=== PATIENT | male | born 1935 | race Two or more races ===

== ENCOUNTER 2016-07-12 16:34 | Inpatient (IN) | payer MEDICARE ==
[~2016-07-12] VITALS: Ht 170.2 cm; Wt 95.3 kg
[~2016-07-12 16:34] MED LIST: ALPR0.5T7 PO; ASPI81CH43 PO; FLUT100M7 IN; HYDR500C; IPRAAER5; LISI10TA6; MECL12.554; MECL25CH PO; OMEG300C7 OR; OMEP20CA5 PO; OMEP20TA44; PAR20T; TAM04C PO
[2016-07-12 17:16] LABS: Basophils # (auto) 0 uL; Basophils % (auto) 0.7 % (0.0-2.0); DEFINITIVE VIEW TRANSMISSION; Eosinophils # (auto) 0.4 uL; Eosinophils % (auto) 6.5 % (0.0-7.0); Hematocrit 48.9 % (41.0-53.0); Hemoglobin 15.9 g/dL (13.5-17.5); Lymphocytes # (auto) 0.7 uL; Lymphocytes % (auto) 12.3 % (10.0-50.0); Mean Corpuscular Hemoglobin 34.7 pg (28.0-32.0); Mean Corpuscular Hgb Conc. 32.6 g/dL (32.0-36.0); Mean Corpuscular Volume 106.3 fL (80.0-100.0); Mean Platelet Volume 7.1 fL (7.4-10.4); Monocytes # (auto) 0.4 uL; Monocytes % (auto) 6.3 % (0.0-12.0); Neutrophils # (auto) 4.3 uL; Neutrophils % (auto) 74.2 % (37.0-80.0); Platelet Count (auto) 340 10^3/uL (140-450); Red Cell Distribution Width 16.1 % (11.6-16.0); White Blood Cell 5.8 10^3/uL (4.4-10.8)
[2016-07-12 17:30] LABS: BUN/Creatinine Ratio 19.3; Bilirubin, Total 0.5 mg/dL (0.2-1.0); Calcium 8.9 mg/dL (8.5-10.1); Potassium 5.3 mmol/L (3.5-5.1); Total Protein 7.7 g/dL (6.4-8.2)
[2016-07-12] MEDS ORDERED: IPRATROPIUM BROM 0.5 MG/2.5ML INH SOL NEB ONE (20:00)
[2016-07-12] MEDS ORDERED: ALBUTEROL SULF 2.5 MG/0.5ML(0.5%) NEB SOLN NEB ONE (20:00)
[2016-07-12] MEDS ORDERED: methylPREDNISolone SOD SUCC 125 MG/2 ML VL IV ONE (20:00)
[2016-07-12 20:25] LABS: INR 1.04 (0.9-1.15)
[2016-07-12 20:30] LABS: B-Type Natriuretic Peptide 9.12 pg/mL (0-100)
[2016-07-12 21:01] LABS: Urine RBC None Seen /hpf (0 - 3)
[2016-07-12] MEDS ORDERED: MECL12.554 PO (21:35)
[2016-07-12 21:36] LABS: Urine Bilirubin Negative (Negative); Urine Blood Negative /uL (Negative); Urine Color Yellow (Yellow); Urine Glucose Normal (Normal); Urine Ketone Negative (Negative); Urine Nitrite Negative (Negative); Urine Squamous Epithelial Cell FEW /hpf (<5); Urine Urobilinogen Normal (Negative); Urine pH 6.5 (5.0-8.0)
[2016-07-12] MEDS ORDERED: LISI-646 PO (21:37)
[2016-07-12] MEDS ORDERED: HYDR500C PO (21:38)
[2016-07-12] MEDS ORDERED: MORPHINE SULF INJ 2 MG/ML SYRINGE 1ML IV PRN (22:45)
[2016-07-12] MEDS ORDERED: NITROGLYCERIN 0.4 MG SL TAB SL PRN (22:45)
[2016-07-12] MEDS ORDERED: DEXTROSE (50%) 50ML SYRG IV PRN (22:45)
[2016-07-12] MEDS ORDERED: cefTRIAXone 1GM/50ML D5W 50 ML IV ONE (22:45)
[2016-07-12] MEDS ORDERED: LACTULOSE 20Gm/30ML SOLN PO PRN (22:45)
[2016-07-12] MEDS ORDERED: AZITHROMYCIN 500MG/D5W 250ML 250 ML IV ONE (22:45)
[2016-07-12] MEDS: SODIUM CHLORIDE 0.9% 1,000 ML IV SCH (23:12)
[2016-07-12 23:20] VITALS: BP 155/78
[2016-07-12 23:30] VITALS: BP 155/75
[2016-07-12] MEDS ORDERED: CALCIUM GLUC 4.65 MEQ/10ML 4.65 MEQ in SODIUM CHL 0.9% 50 ML IV ONE (23:45)
[2016-07-12] MEDS ORDERED: SODIUM BICARBONATE 8.4% INJ 50ML SYRINGE IV ONE (23:45)
[2016-07-12] MEDS ORDERED: InsuLIN REG 1unit/0.01ml Soln (100units/ml) IV ONE (23:45)
[2016-07-12] MEDS ORDERED: DEXTROSE (50%) 50ML SYRG IV ONE (23:45)
[2016-07-13] MEDS ORDERED: CALCIUM GLUC 4.65 MEQ/10ML IV ONE (00:07)
[2016-07-13] MEDS: InsuLIN REG 1unit/0.01ml Soln (100units/ml) SC SCH ×3 (00:55→11:46)
[2016-07-13] MEDS: ACCU-CHEK COMFORT CURVE STRIP VI SCH ×3 (00:55→11:46)
[2016-07-13 05:09] VITALS: BP 117/70
[2016-07-13] MEDS ORDERED: IBUP600T27 PO (05:25)
[2016-07-13] MEDS ORDERED: ALBU1AER4 IN (05:25)
[2016-07-13] MEDS ORDERED: MECL-87 PO (05:25)
[2016-07-13] MEDS ORDERED: ARTISOL13 EACHEYE (05:25)
[2016-07-13] MEDS ORDERED: ATOR20TA PO (05:25)
[2016-07-13 06:09] LABS: Basophils # (auto) 0 uL; Basophils % (auto) 0.1 % (0.0-2.0); DEFINITIVE VIEW TRANSMISSION; Eosinophils # (auto) 0 uL; Eosinophils % (auto) 0.2 % (0.0-7.0); Hematocrit 47.2 % (41.0-53.0); Hemoglobin 15.5 g/dL (13.5-17.5); Lymphocytes # (auto) 0.3 uL; Mean Corpuscular Hemoglobin 34.4 pg (28.0-32.0); Mean Corpuscular Hgb Conc. 32.8 g/dL (32.0-36.0); Mean Platelet Volume 7.3 fL (7.4-10.4); Monocytes # (auto) 0.1 uL; Monocytes % (auto) 1.3 % (0.0-12.0); Neutrophils # (auto) 3.9 uL; Neutrophils % (auto) 90.4 % (37.0-80.0); Platelet Count (auto) 321 10^3/uL (140-450); Red Cell Distribution Width 15.6 % (11.6-16.0); White Blood Cell 4.3 10^3/uL (4.4-10.8)
[2016-07-13 06:36] LABS: Albumin 3.8 g/dL (3.4-5.0); BUN/Creatinine Ratio 20.8; Bilirubin, Total 0.5 mg/dL (0.2-1.0); Calcium 8.8 mg/dL (8.5-10.1); Potassium 4.3 mmol/L (3.5-5.1); Total Protein 7.4 g/dL (6.4-8.2)
[2016-07-13 09:00] VITALS: BP 117/69
[2016-07-13] MEDS: methylPREDNISolone SOD SUCC 125 MG/2 ML VL IV SCH ×3 (09:00→23:01)
[2016-07-13] MEDS: cefTRIAXone 1GM/50ML D5W 50 ML IV SCH (09:00)
[2016-07-13] MEDS: PARoxetine 20 MG TAB PO SCH (09:42)
[2016-07-13] MEDS: PANTOPRAZOLE SODIUM 40 MG/10 ML VIAL IV SCH (09:42)
[2016-07-13] MEDS: AZITHROMYCIN 500MG/D5W 250ML 250 ML IV SCH (09:43)
[2016-07-13] MEDS: ENOXAPARIN SOD 40 MG/0.4 ML SYRINGE SC SCH (09:43)
[2016-07-13] MEDS: HYDROXYUREA 500 MG CAP PO SCH (09:43)
[2016-07-13] MEDS: ASPirin 81 mg TAB PO SCH (09:43)
[2016-07-13] MEDS: ALPRAZolam 0.5 MG TAB PO SCH ×2 (09:44→23:01)
[2016-07-13] MEDS: LISINOPRIL 20 MG TAB PO SCH (09:44)
[2016-07-13] MEDS ORDERED: ENOXAPARIN SOD 30 MG/0.3 ML SYRINGE SC SCH (10:00)
[2016-07-13] MEDS: SODIUM CHLORIDE 0.9% 1,000 ML IV SCH ×2 (11:10→23:40)
[2016-07-13] MEDS: IPRATROPIUM BROM 0.5 MG/2.5ML INH SOL NEB PRN (12:00)
[2016-07-13] MEDS: ALBUTEROL SULF 2.5 MG/0.5ML(0.5%) NEB SOLN NEB PRN (12:00)
[2016-07-13 13:00] VITALS: BP 115/79
[2016-07-13 17:00] VITALS: BP 108/66
[2016-07-13] MEDS: TAMSULOSIN HYDROCHLORIDE 0.4 MG CAP PO SCH (17:55)
[2016-07-13] MEDS ORDERED: TEMAZEPAM 15 MG CAP PO ONE (22:00)
[2016-07-13 22:10] VITALS: BP 117/68
[2016-07-13 23:16] VITALS: BP 117/68
[2016-07-14 05:00] VITALS: BP 117/61
[2016-07-14] MEDS: ALBUTEROL SULF 2.5 MG/0.5ML(0.5%) NEB SOLN NEB PRN ×3 (07:15→22:25)
[2016-07-14] MEDS: IPRATROPIUM BROM 0.5 MG/2.5ML INH SOL NEB PRN ×3 (07:15→22:25)
[2016-07-14 08:00] VITALS: BP 128/80
[2016-07-14] MEDS: cefTRIAXone 1GM/50ML D5W 50 ML IV SCH (09:10)
[2016-07-14] MEDS: PANTOPRAZOLE SODIUM 40 MG/10 ML VIAL IV SCH (09:14)
[2016-07-14] MEDS: methylPREDNISolone SOD SUCC 125 MG/2 ML VL IV SCH (09:18)
[2016-07-14] MEDS: ALPRAZolam 0.5 MG TAB PO SCH ×2 (09:20→22:14)
[2016-07-14] MEDS: HYDROXYUREA 500 MG CAP PO SCH (09:20)
[2016-07-14] MEDS: ASPirin 81 mg TAB PO SCH (09:20)
[2016-07-14] MEDS: ENOXAPARIN SOD 40 MG/0.4 ML SYRINGE SC SCH (09:21)
[2016-07-14] MEDS: PARoxetine 20 MG TAB PO SCH (09:21)
[2016-07-14] MEDS: LISINOPRIL 20 MG TAB PO SCH (09:21)
[2016-07-14] MEDS: AZITHROMYCIN 500MG/D5W 250ML 250 ML IV SCH (10:00)
[2016-07-14] MEDS: SODIUM CHLORIDE 0.9% 1,000 ML IV SCH (10:38)
[2016-07-14 12:30] VITALS: BP 111/71
[2016-07-14] MEDS ORDERED: FUROSEMIDE 40 MG/4 ML VIAL IV ONE (14:30)
[2016-07-14 17:00] VITALS: BP 107/68
[2016-07-14] MEDS: TAMSULOSIN HYDROCHLORIDE 0.4 MG CAP PO SCH (18:09)
[2016-07-14 21:19] VITALS: BP 100/55
[2016-07-14] MEDS: methylPREDNISolone SOD SUCC 40 MG/ML VL IV SCH (22:13)
[2016-07-14] MEDS ORDERED: ZOLPIDEM TARTRATE 5 MG TAB PO PRN (22:15)
[2016-07-15 05:00] VITALS: BP 124/70
[2016-07-15] MEDS: IPRATROPIUM BROM 0.5 MG/2.5ML INH SOL NEB PRN ×3 (06:15→13:49)
[2016-07-15] MEDS: ALBUTEROL SULF 2.5 MG/0.5ML(0.5%) NEB SOLN NEB PRN ×3 (06:15→13:49)
[2016-07-15 09:00] VITALS: BP 134/90
[2016-07-15] MEDS: ASPirin 81 mg TAB PO SCH (09:31)
[2016-07-15] MEDS: cefTRIAXone 1GM/50ML D5W 50 ML IV SCH (09:31)
[2016-07-15] MEDS: methylPREDNISolone SOD SUCC 40 MG/ML VL IV SCH ×2 (09:31→22:15)
[2016-07-15] MEDS: HYDROXYUREA 500 MG CAP PO SCH (09:31)
[2016-07-15] MEDS: ALPRAZolam 0.5 MG TAB PO SCH ×2 (09:32→22:15)
[2016-07-15] MEDS: PARoxetine 20 MG TAB PO SCH (09:32)
[2016-07-15] MEDS: LISINOPRIL 20 MG TAB PO SCH (09:32)
[2016-07-15] MEDS: AZITHROMYCIN 500MG/D5W 250ML 250 ML IV SCH (11:57)
[2016-07-15 13:00] VITALS: BP 129/75
[2016-07-15 17:00] VITALS: BP 122/68
[2016-07-15] MEDS: TAMSULOSIN HYDROCHLORIDE 0.4 MG CAP PO SCH (17:37)
[2016-07-15] MEDS: ALBUTEROL SULF 2.5 MG/0.5ML(0.5%) NEB SOLN NEB SCH (18:46)
[2016-07-15] MEDS: IPRATROPIUM BROM 0.5 MG/2.5ML INH SOL NEB SCH (18:46)
[2016-07-15] MEDS: BUDESONIDE (INHALATION) 0.5 MG/2 ML NEB NEB SCH (18:47)
[2016-07-15 22:00] VITALS: BP 109/65
[2016-07-16 05:00] VITALS: BP 118/68
[2016-07-16] MEDS: IPRATROPIUM BROM 0.5 MG/2.5ML INH SOL NEB SCH ×4 (06:01→19:01)
[2016-07-16] MEDS: ALBUTEROL SULF 2.5 MG/0.5ML(0.5%) NEB SOLN NEB SCH ×4 (06:01→19:00)
[2016-07-16] MEDS ORDERED: SODIUM CHLORIDE LOCK 0 ML ONE (08:04)
[2016-07-16] MEDS ORDERED: MIDAZOLAM HCL 5 MG/ML-1ML VIAL ONE (08:04)
[2016-07-16] MEDS ORDERED: fentaNYL CITRATE 100 MCG/2 ML VL ONE (08:05)
[2016-07-16] MEDS ORDERED: diphenhdrAMINE HCL 50 MG/1 ML VL ONE (08:05)
[2016-07-16 09:02] VITALS: BP 137/80
[2016-07-16] MEDS: HYDROXYUREA 500 MG CAP PO SCH (09:33)
[2016-07-16] MEDS: ALPRAZolam 0.5 MG TAB PO SCH (09:33)
[2016-07-16] MEDS: cefTRIAXone 1GM/50ML D5W 50 ML IV SCH (09:33)
[2016-07-16] MEDS: methylPREDNISolone SOD SUCC 40 MG/ML VL IV SCH (09:33)
[2016-07-16] MEDS: LISINOPRIL 20 MG TAB PO SCH (09:33)
[2016-07-16] MEDS: ASPirin 81 mg TAB PO SCH (09:33)
[2016-07-16] MEDS: PARoxetine 20 MG TAB PO SCH (09:33)
[2016-07-16] MEDS: BUDESONIDE (INHALATION) 0.5 MG/2 ML NEB NEB SCH ×2 (10:15→19:01)
[2016-07-16] MEDS: AZITHROMYCIN 500MG/D5W 250ML 250 ML IV SCH (10:41)
[2016-07-16 13:00] VITALS: BP 111/71
[2016-07-16 16:45] VITALS: BP 111/71
[2016-07-16 17:09] VITALS: BP 128/77
[2016-07-16] MEDS: TAMSULOSIN HYDROCHLORIDE 0.4 MG CAP PO SCH (17:42)
== END 2016-07-16 20:40 | disposition home or self-care (01) | DRG 193 ==
LOC: ER 16:37 → TELE 16:38 → TELE-WESTW 23:20 → WEST WING 07-14 14:56
PROVIDERS: ADMIT Family Medicine; ATTEND Internal Medicine
DX: J18.9 Pneumonia, unspecified organism (principal); J96.00 Acute respiratory failure, unspecified whether with hypoxia or hypercapnia; J44.0 Chronic obstructive pulmonary disease with (acute) lower respiratory infection; J98.11 Atelectasis; J44.1 Chronic obstructive pulmonary disease with (acute) exacerbation; I10 Essential (primary) hypertension; D75.1 Secondary polycythemia; E66.9 Obesity, unspecified; E11.65 Type 2 diabetes mellitus with hyperglycemia; E78.5 Hyperlipidemia, unspecified; I25.10 Atherosclerotic heart disease of native coronary artery without angina pectoris; G51.0 Bell's palsy; I70.0 Atherosclerosis of aorta; J20.9 Acute bronchitis, unspecified; F32.9 Major depressive disorder, single episode, unspecified; F41.9 Anxiety disorder, unspecified; Z86.73 Personal history of transient ischemic attack (TIA), and cerebral infarction without residual deficits; Z87.891 Personal history of nicotine dependence; Z82.3 Family history of stroke; Z68.32 Body mass index [BMI] 32.0-32.9, adult
CPT/HCPCS: 36415; 36600; 71020; 80053; 80061; 81001; 82805; 82962; 83036; 83880; 84484; 85025; 85049; 85379; 85610; 85730; 87040; 87081; 93005; 94640; 96374; 96375; C9113; J0696; J1815; J2250

== ENCOUNTER 2017-01-08 10:49 | Inpatient (IN) | payer MEDICARE ==
[~2017-01-08] VITALS: Ht 153.9 cm; Wt 97.3 kg
[~2017-01-08 10:49] MED LIST changes: +ALBU1AER4 IN; +ARTISOL13 EACHEYE; +ATOR20TA PO; -HYDR500C; +HYDR500C PO; +IBUP600T27 PO; +LISI-646 PO; -LISI10TA6; +MECL-87 PO; -MECL12.554; +MECL12.554 PO; -MECL25CH PO; -OMEP20CA5 PO
[2017-01-08] MEDS ORDERED: SODIUM CHLORIDE 0.9% 1,000 ML IV ONE (11:13)
[2017-01-08 12:12] LABS: Basophils # (auto) 0 uL; Basophils % (auto) 0.5 % (0.0-2.0); CONDITION Y; DEFINITIVE SEE PRINTOUT; Eosinophils # (auto) 0.4 uL; Eosinophils % (auto) 4.9 % (0.0-7.0); Hematocrit 50.4 % (41.0-53.0); Hemoglobin 16.8 g/dL (13.5-17.5); Mean Corpuscular Hemoglobin 35.2 pg (28.0-32.0); Mean Corpuscular Hgb Conc. 33.3 g/dL (32.0-36.0); Mean Corpuscular Volume 105.7 fL (80.0-100.0); Mean Platelet Volume 7.4 fL (7.4-10.4); Monocytes # (auto) 0.7 uL; Monocytes % (auto) 7.7 % (0.0-12.0); Neutrophils # (auto) 6.6 uL; Neutrophils % (auto) 75.9 % (37.0-80.0); Platelet Count (auto) 629 10^3/uL (140-450); Red Cell Distribution Width 13.5 % (11.6-16.0); White Blood Cell 8.6 10^3/uL (4.4-10.8)
[2017-01-08 12:33] LABS: INR 1.05 (0.9-1.15); Partial Thromboplastin Time 31.7 sec (22.64-33.71); Prothrombin Time 11.4 sec (9.37-12.3)
[2017-01-08 12:35] LABS: Albumin 3.4 g/dL (3.4-5.0); Alkaline Phosphatase 86 U/L (45-117); Anion Gap 9 (5-15); Aspartate Aminotransferase 14 U/L (15-37); BUN/Creatinine Ratio 20.7; Bilirubin, Total 0.6 mg/dL (0.2-1.0); Blood Urea Nitrogen 17 mg/dL (7-18); Calcium 8.8 mg/dL (8.5-10.1); Carbon Dioxide 26 mmol/L (21-32); Chloride 101 mmol/L (98-107); GFR African American 117 mL/min; GFR Non-African American 96 mL/min; Glucose 150 mg/dL (74-106); Sodium 136 mmol/L (136-145); Total Protein 7.4 g/dL (6.4-8.2)
[2017-01-08 12:40] LABS: B-Type Natriuretic Peptide 10.68 pg/mL (0-100)
[2017-01-08 12:56] LABS: Temperature: 24.3 C (20.0-25.0)
[2017-01-08 14:40] LABS: Urine Bilirubin Negative (Negative); Urine Blood Negative /uL (Negative); Urine Color Yellow (Yellow); Urine Glucose Normal (Normal); Urine Ketone Negative (Negative); Urine Nitrite Negative (Negative); Urine RBC <1 /hpf (0 - 3); Urine Urobilinogen Normal (Negative); Urine pH 5.5 (5.0-8.0)
[2017-01-08] MEDS ORDERED: AZITHROMYCIN 500MG/D5W 250ML 250 ML IV ONE (14:45)
[2017-01-08] MEDS ORDERED: cefTRIAXone 1GM/50ML D5W 50 ML IV ONE (14:45)
[2017-01-08] MEDS ORDERED: IOHEXOL 350 MG/ML 100ML IJ ONE (15:04)
[2017-01-08] MEDS ORDERED: MORPHINE SULF INJ 2 MG/ML SYRINGE 1ML IV PRN (15:30)
[2017-01-08] MEDS ORDERED: POTASSIUM CHL 20 Meq TABLET PO ONE (15:30)
[2017-01-08] MEDS ORDERED: NITROGLYCERIN 0.4 MG SL TAB SL PRN (15:30)
[2017-01-08] MEDS ORDERED: FUROSEMIDE 40 MG/4 ML VIAL IV ONE (15:30)
[2017-01-08] MEDS ORDERED: HYDROXYUREA 500 MG CAP PO ONE (15:45)
[2017-01-08] MEDS ORDERED: PARoxetine 20 MG TAB PO ONE (15:45)
[2017-01-08] MEDS ORDERED: LOSARTAN POTASSIUM 25 MG TAB PO ONE (15:45)
[2017-01-08] MEDS ORDERED: ASPirin 81 mg TAB PO ONE (15:45)
[2017-01-08] MEDS ORDERED: PANTOPRAZOLE 40 MG TAB PO ONE (15:45)
[2017-01-08 17:33] VITALS: BP 142/89
[2017-01-08] MEDS: TAMSULOSIN HYDROCHLORIDE 0.4 MG CAP PO SCH (19:16)
[2017-01-08] MEDS: ALBUTEROL SULF 2.5 MG/0.5ML(0.5%) NEB SOLN NEB SCH (19:51)
[2017-01-08] MEDS: IPRATROPIUM BROM 0.5 MG/2.5ML INH SOL NEB SCH (19:51)
[2017-01-08 20:16] VITALS: BP 142/89
[2017-01-08] MEDS: GEMFIBROZIL 600 MG TAB PO SCH (21:58)
[2017-01-08] MEDS: ATORVASTATIN 20 MG TAB PO SCH (21:58)
[2017-01-08 22:00] VITALS: BP 102/67
[2017-01-08] MEDS ORDERED: ALBUAER3 IN (22:16)
[2017-01-08] MEDS ORDERED: LOSA25TA9 PO (22:16)
[2017-01-08] MEDS ORDERED: GEMF600T3 PO (22:16)
[2017-01-09 05:30] VITALS: BP 125/83
[2017-01-09 06:00] LABS: BUN/Creatinine Ratio 22.8; Calcium 8.6 mg/dL (8.5-10.1); Potassium 3.8 mmol/L (3.5-5.1)
[2017-01-09 06:07] LABS: Basophils # (auto) 0 uL; Basophils % (auto) 0.5 % (0.0-2.0); CONDITION Y; DEFINITIVE SEE PRINTOUT; Eosinophils # (auto) 0.4 uL; Eosinophils % (auto) 5.3 % (0.0-7.0); Hematocrit 50.2 % (41.0-53.0); Hemoglobin 16.8 g/dL (13.5-17.5); Lymphocytes # (auto) 1.1 uL; Lymphocytes % (auto) 13.7 % (10.0-50.0); Mean Corpuscular Hemoglobin 35.4 pg (28.0-32.0); Mean Corpuscular Hgb Conc. 33.4 g/dL (32.0-36.0); Mean Corpuscular Volume 106.1 fL (80.0-100.0); Mean Platelet Volume 7.7 fL (7.4-10.4); Monocytes # (auto) 0.6 uL; Monocytes % (auto) 8.2 % (0.0-12.0); Neutrophils # (auto) 5.7 uL; Neutrophils % (auto) 72.3 % (37.0-80.0); Platelet Count (auto) 563 10^3/uL (140-450); Red Cell Distribution Width 13.7 % (11.6-16.0); White Blood Cell 7.9 10^3/uL (4.4-10.8)
[2017-01-09] MEDS: IPRATROPIUM BROM 0.5 MG/2.5ML INH SOL NEB SCH ×4 (06:55→19:06)
[2017-01-09] MEDS: ALBUTEROL SULF 2.5 MG/0.5ML(0.5%) NEB SOLN NEB SCH ×4 (06:55→19:06)
[2017-01-09 08:58] VITALS: BP 123/80
[2017-01-09] MEDS: AZITHROMYCIN 500MG/D5W 250ML 250 ML IV SCH (09:37)
[2017-01-09] MEDS: LOSARTAN POTASSIUM 25 MG TAB PO SCH (09:38)
[2017-01-09] MEDS: HYDROXYUREA 500 MG CAP PO SCH (09:38)
[2017-01-09] MEDS: ASPirin 81 mg TAB PO SCH (09:38)
[2017-01-09] MEDS: GEMFIBROZIL 600 MG TAB PO SCH ×2 (09:39→21:36)
[2017-01-09] MEDS: PARoxetine 20 MG TAB PO SCH (09:39)
[2017-01-09] MEDS: PANTOPRAZOLE 40 MG TAB PO SCH (09:40)
[2017-01-09 12:47] VITALS: BP 126/72
[2017-01-09 17:00] VITALS: BP 137/84
[2017-01-09] MEDS: TAMSULOSIN HYDROCHLORIDE 0.4 MG CAP PO SCH (17:59)
[2017-01-09] MEDS: ATORVASTATIN 20 MG TAB PO SCH (21:36)
[2017-01-09] MEDS: ACETAMINOPHEN 325 MG TAB PO PRN (21:37)
[2017-01-09 22:00] VITALS: BP 139/94
[2017-01-10 05:30] VITALS: BP 125/79
[2017-01-10] MEDS: IPRATROPIUM BROM 0.5 MG/2.5ML INH SOL NEB SCH ×3 (06:39→18:40)
[2017-01-10] MEDS: ALBUTEROL SULF 2.5 MG/0.5ML(0.5%) NEB SOLN NEB SCH ×3 (06:39→18:39)
[2017-01-10 07:24] LABS: Basophils # (auto) 0.1 uL; Basophils % (auto) 1.2 % (0.0-2.0); CONDITION Y; DEFINITIVE SEE PRINTOUT; Eosinophils # (auto) 0.5 uL; Eosinophils % (auto) 6.5 % (0.0-7.0); Hematocrit 49.8 % (41.0-53.0); Hemoglobin 16.7 g/dL (13.5-17.5); Lymphocytes # (auto) 0.9 uL; Lymphocytes % (auto) 13.2 % (10.0-50.0); Mean Corpuscular Hemoglobin 35.1 pg (28.0-32.0); Mean Corpuscular Hgb Conc. 33.5 g/dL (32.0-36.0); Mean Corpuscular Volume 104.8 fL (80.0-100.0); Mean Platelet Volume 7.5 fL (7.4-10.4); Monocytes # (auto) 0.6 uL; Monocytes % (auto) 8.6 % (0.0-12.0); Neutrophils % (auto) 70.5 % (37.0-80.0); Platelet Count (auto) 576 10^3/uL (140-450); Red Cell Distribution Width 13.2 % (11.6-16.0); White Blood Cell 7.1 10^3/uL (4.4-10.8)
[2017-01-10 07:52] LABS: Calcium 8.7 mg/dL (8.5-10.1); Potassium 3.8 mmol/L (3.5-5.1)
[2017-01-10 07:56] LABS: Albumin 3.4 g/dL (3.4-5.0); BUN/Creatinine Ratio 23.2
[2017-01-10 07:58] LABS: Bilirubin, Total 0.5 mg/dL (0.2-1.0); Total Protein 7.1 g/dL (6.4-8.2)
[2017-01-10 09:00] VITALS: BP 124/65
[2017-01-10] MEDS: AZITHROMYCIN 500MG/D5W 250ML 250 ML IV SCH (09:48)
[2017-01-10] MEDS: HYDROXYUREA 500 MG CAP PO SCH (09:49)
[2017-01-10] MEDS: GEMFIBROZIL 600 MG TAB PO SCH ×2 (09:50→22:58)
[2017-01-10] MEDS: PANTOPRAZOLE 40 MG TAB PO SCH (09:50)
[2017-01-10] MEDS: PARoxetine 20 MG TAB PO SCH (09:50)
[2017-01-10] MEDS: ASPirin 81 mg TAB PO SCH (09:51)
[2017-01-10] MEDS: LOSARTAN POTASSIUM 25 MG TAB PO SCH (09:51)
[2017-01-10 13:00] VITALS: BP 138/80
[2017-01-10 16:51] VITALS: BP 126/78
[2017-01-10] MEDS: TAMSULOSIN HYDROCHLORIDE 0.4 MG CAP PO SCH (17:45)
[2017-01-10 20:00] VITALS: BP 119/83
[2017-01-10 22:00] VITALS: BP 119/83
[2017-01-10] MEDS: ATORVASTATIN 20 MG TAB PO SCH (22:58)
[2017-01-11 05:43] VITALS: BP 123/73
[2017-01-11] MEDS: ALBUTEROL SULF 2.5 MG/0.5ML(0.5%) NEB SOLN NEB SCH ×4 (06:50→18:29)
[2017-01-11] MEDS: IPRATROPIUM BROM 0.5 MG/2.5ML INH SOL NEB SCH ×4 (06:50→18:29)
[2017-01-11 08:00] VITALS: BP 126/77
[2017-01-11 09:04] VITALS: BP 126/77
[2017-01-11] MEDS: PANTOPRAZOLE 40 MG TAB PO SCH (09:51)
[2017-01-11] MEDS: GEMFIBROZIL 600 MG TAB PO SCH ×2 (09:51→22:27)
[2017-01-11] MEDS: AZITHROMYCIN 500MG/D5W 250ML 250 ML IV SCH (09:51)
[2017-01-11] MEDS: ASPirin 81 mg TAB PO SCH (09:51)
[2017-01-11] MEDS: PARoxetine 20 MG TAB PO SCH (09:51)
[2017-01-11] MEDS: HYDROXYUREA 500 MG CAP PO SCH (09:51)
[2017-01-11] MEDS: LOSARTAN POTASSIUM 25 MG TAB PO SCH (09:52)
[2017-01-11] MEDS: ACETAMINOPHEN 325 MG TAB PO PRN (11:28)
[2017-01-11 13:00] VITALS: BP 102/50
[2017-01-11 17:27] VITALS: BP 101/64
[2017-01-11] MEDS: TAMSULOSIN HYDROCHLORIDE 0.4 MG CAP PO SCH (18:23)
[2017-01-11 20:24] VITALS: BP 101/64
[2017-01-11] MEDS: ATORVASTATIN 20 MG TAB PO SCH (22:27)
[2017-01-12] MEDS: IPRATROPIUM BROM 0.5 MG/2.5ML INH SOL NEB SCH ×4 (00:09→19:48)
[2017-01-12] MEDS: ALBUTEROL SULF 2.5 MG/0.5ML(0.5%) NEB SOLN NEB SCH ×4 (00:09→19:48)
[2017-01-12 02:34] VITALS: BP 132/69
[2017-01-12 04:56] VITALS: BP 144/83
[2017-01-12 06:24] LABS: Basophils # (auto) 0 uL; Basophils % (auto) 0.2 % (0.0-2.0); CONDITION Y; DEFINITIVE SEE PRINTOUT; Eosinophils # (auto) 0.4 uL; Eosinophils % (auto) 5.6 % (0.0-7.0); Hematocrit 49.6 % (41.0-53.0); Hemoglobin 16.5 g/dL (13.5-17.5); Lymphocytes # (auto) 0.9 uL; Lymphocytes % (auto) 12.3 % (10.0-50.0); Mean Corpuscular Hemoglobin 35.2 pg (28.0-32.0); Mean Corpuscular Hgb Conc. 33.3 g/dL (32.0-36.0); Mean Corpuscular Volume 105.8 fL (80.0-100.0); Mean Platelet Volume 7.7 fL (7.4-10.4); Monocytes # (auto) 0.7 uL; Monocytes % (auto) 8.6 % (0.0-12.0); Neutrophils # (auto) 5.6 uL; Neutrophils % (auto) 73.3 % (37.0-80.0); Platelet Count (auto) 515 10^3/uL (140-450); Red Cell Distribution Width 13.6 % (11.6-16.0); White Blood Cell 7.7 10^3/uL (4.4-10.8)
[2017-01-12 06:53] LABS: Albumin 3.4 g/dL (3.4-5.0); BUN/Creatinine Ratio 21.8; Calcium 8.6 mg/dL (8.5-10.1)
[2017-01-12 06:57] LABS: Bilirubin, Total 0.5 mg/dL (0.2-1.0); Total Protein 7.1 g/dL (6.4-8.2)
[2017-01-12 09:00] VITALS: BP 132/83
[2017-01-12] MEDS: HYDROXYUREA 500 MG CAP PO SCH (10:35)
[2017-01-12] MEDS: AZITHROMYCIN 500MG/D5W 250ML 250 ML IV SCH (10:35)
[2017-01-12] MEDS: LOSARTAN POTASSIUM 25 MG TAB PO SCH (10:36)
[2017-01-12] MEDS: GEMFIBROZIL 600 MG TAB PO SCH ×2 (10:36→22:47)
[2017-01-12] MEDS: PANTOPRAZOLE 40 MG TAB PO SCH (10:37)
[2017-01-12] MEDS: ASPirin 81 mg TAB PO SCH (10:37)
[2017-01-12] MEDS: PARoxetine 20 MG TAB PO SCH (10:37)
[2017-01-12 13:00] VITALS: BP 124/75
[2017-01-12 17:00] VITALS: BP 148/92
[2017-01-12] MEDS: TAMSULOSIN HYDROCHLORIDE 0.4 MG CAP PO SCH (17:01)
[2017-01-12 22:13] VITALS: BP 121/75
[2017-01-12] MEDS: ATORVASTATIN 20 MG TAB PO SCH (22:47)
[2017-01-13 05:16] VITALS: BP 120/71
[2017-01-13] MEDS: ALBUTEROL SULF 2.5 MG/0.5ML(0.5%) NEB SOLN NEB SCH ×3 (05:51→11:07)
[2017-01-13] MEDS: IPRATROPIUM BROM 0.5 MG/2.5ML INH SOL NEB SCH ×3 (05:51→11:06)
[2017-01-13 09:00] VITALS: BP 127/81
[2017-01-13] MEDS: PANTOPRAZOLE 40 MG TAB PO SCH (10:13)
[2017-01-13] MEDS: GEMFIBROZIL 600 MG TAB PO SCH (10:13)
[2017-01-13] MEDS: HYDROXYUREA 500 MG CAP PO SCH (10:13)
[2017-01-13] MEDS: ASPirin 81 mg TAB PO SCH (10:14)
[2017-01-13] MEDS: PARoxetine 20 MG TAB PO SCH (10:14)
[2017-01-13] MEDS: LOSARTAN POTASSIUM 25 MG TAB PO SCH (10:14)
[2017-01-13] MEDS: AZITHROMYCIN 500MG/D5W 250ML 250 ML IV SCH (10:16)
[2017-01-13 13:00] VITALS: BP_SYST 121; BP_SYST 124; BP_DIAS 62; BP_DIAS 72
[2017-01-13 17:00] VITALS: BP 139/64
[2017-01-13] MEDS: TAMSULOSIN HYDROCHLORIDE 0.4 MG CAP PO SCH (18:00)
== END 2017-01-13 18:05 | disposition home or self-care (01) | DRG 190 ==
LOC: ER 10:50 → TELE 10:51 → TELE-WESTW 19:12
PROVIDERS: ADMIT Internal Medicine; ATTEND Internal Medicine
DX: J44.0 Chronic obstructive pulmonary disease with (acute) lower respiratory infection (principal); J18.9 Pneumonia, unspecified organism; I11.0 Hypertensive heart disease with heart failure; D45 Polycythemia vera; I50.9 Heart failure, unspecified; E66.9 Obesity, unspecified; K21.9 Gastro-esophageal reflux disease without esophagitis; E78.5 Hyperlipidemia, unspecified; I25.10 Atherosclerotic heart disease of native coronary artery without angina pectoris; N40.0 Benign prostatic hyperplasia without lower urinary tract symptoms; M19.90 Unspecified osteoarthritis, unspecified site; F32.9 Major depressive disorder, single episode, unspecified; R59.0 Localized enlarged lymph nodes; R91.8 Other nonspecific abnormal finding of lung field; Z91.14 Patient's other noncompliance with medication regimen; Z68.32 Body mass index [BMI] 32.0-32.9, adult; Z79.82 Long term (current) use of aspirin; Z86.73 Personal history of transient ischemic attack (TIA), and cerebral infarction without residual deficits; Z87.891 Personal history of nicotine dependence; Z82.3 Family history of stroke; Z82.49 Family history of ischemic heart disease and other diseases of the circulatory system
CPT/HCPCS: 36415; 71010; 71275; 80048; 80053; 81001; 83605; 83880; 84484; 85025; 85610; 85730; 87040; 93005; 93306; 94640; 96361; 96365; 96368; 96375; J0696

== ENCOUNTER 2017-02-09 14:39 | Emergency (ER) | payer MEDICARE ==
[~2017-02-09] VITALS: Ht 167.6 cm; Wt 95.3 kg
[~2017-02-09 14:39] MED LIST changes: -ALBU1AER4 IN; +ALBUAER3 IN; +GEMF600T3 PO; -IPRAAER5; +LOSA25TA9 PO; -MECL12.554 PO
[2017-02-09 15:08] VITALS: BP 135/78
== END 2017-02-09 15:25 | disposition home or self-care (01) ==
LOC: ER 14:39
DX: B02.9 Zoster without complications (principal); E78.5 Hyperlipidemia, unspecified; I10 Essential (primary) hypertension; Z87.891 Personal history of nicotine dependence

== ENCOUNTER 2017-02-17 13:14 | Emergency (ER) | payer MEDICARE ==
[~2017-02-17] VITALS: Ht 167.6 cm; Wt 95.3 kg
[2017-02-17 13:21] VITALS: BP 149/101
[2017-02-17] MEDS ORDERED: methylPREDNISolone SOD SUCC 125 MG/2 ML VL IM ONE (14:45)
[2017-02-17] MEDS ORDERED: diphenhdrAMINE HCL 50 MG/1 ML VL IM ONE (14:45)
== END 2017-02-17 15:34 | disposition home or self-care (01) ==
LOC: ER 13:14
DX: B02.9 Zoster without complications (principal); Z79.82 Long term (current) use of aspirin; I10 Essential (primary) hypertension; E78.5 Hyperlipidemia, unspecified; M19.90 Unspecified osteoarthritis, unspecified site; Z87.891 Personal history of nicotine dependence; Z79.899 Other long term (current) drug therapy
CPT/HCPCS: 96372; 99284; J1200; J2930

== ENCOUNTER 2017-07-01 15:19 | Emergency (ER) | payer MEDICARE ==
[~2017-07-01] VITALS: Ht 170.2 cm; Wt 97.5 kg
[2017-07-01 15:43] VITALS: BP 154/84
== END 2017-07-01 18:57 | disposition left against medical advice (07) ==
LOC: ER 15:19
DX: R42 Dizziness and giddiness (principal); R51 Headache; Z53.21 Procedure and treatment not carried out due to patient leaving prior to being seen by health care provider

== ENCOUNTER 2018-09-30 20:40 | Emergency (ER) | payer OTHER ==
[~2018-09-30] VITALS: Ht 167.6 cm; Wt 95.7 kg
[~2018-09-30 20:40] MED LIST changes: +ALBU1.257 IN; -ARTISOL13 EACHEYE; -GEMF600T3 PO; +GUAI600T23 PO; -HYDR500C PO; +IPRA0.03; +LEVO750T2 PO; -LISI-646 PO; +LOSA25TA40 PO; -LOSA25TA9 PO; -MECL-87 PO; +MECL25CH38 PO; +METF-370 PO; -OMEG300C7 OR; +PANT40T PO; +PRED1PAK7 PO
[2018-09-30 21:13] LABS: Basophils # (auto) 0.1 uL; Hematocrit 44.5 % (41.0-53.0); Lymphocytes # (auto) 1.2 uL; Monocytes # (auto) 0.6 uL
[2018-09-30 21:15] LABS: Basophils % (auto) 1.1 % (0.0-2.0); Eosinophils # (auto) 0.4 uL; Eosinophils % (auto) 4.7 % (0.0-7.0); Hemoglobin 13.8 g/dL (13.5-17.5); Lymphocytes % (auto) 16.3 % (10.0-50.0); Mean Corpuscular Hemoglobin 24.5 pg (28.0-32.0); Mean Corpuscular Volume 78.9 fL (80.0-100.0); Monocytes % (auto) 7.8 % (0.0-12.0); Neutrophils # (auto) 5.3 uL; Neutrophils % (auto) 70.1 % (37.0-80.0); Nucleated Red Blood Cells % 0.1 %; Platelet Count (auto) 310 10^3/uL (140-450); Red Blood Cells 5.64 10^6/uL (4.5-5.90); White Blood Cell 7.6 10^3/uL (4.4-10.8)
[2018-09-30 21:26] LABS: Alanine Aminotransferase 57 U/L (16-61); Albumin 3.9 g/dL (3.4-5.0); Anion Gap 9 (5-15); Aspartate Aminotransferase 26 U/L (15-37); BUN/Creatinine Ratio 21.4; Blood Urea Nitrogen 15 mg/dL (7-18); Calcium 8.2 mg/dL (8.5-10.1); Carbon Dioxide 27 mmol/L (21-32); Chloride 104 mmol/L (98-107); GFR African American 140 mL/min; GFR Non-African American 115 mL/min; Glucose 122 mg/dL (74-106); Magnesium 2.3 mg/dL (1.6-2.6); Potassium 4.4 mmol/L (3.5-5.1); Sodium 140 mmol/L (136-145)
[2018-09-30 21:31] LABS: Alkaline Phosphatase 116 U/L (45-117); Bilirubin, Total 0.3 mg/dL (0.2-1.0); Total Protein 7.6 g/dL (6.4-8.2)
[2018-10-01 02:30] LABS: INR 0.95 (0.9-1.15); Partial Thromboplastin Time 30.1 sec (23.78-33.04); Prothrombin Time 10.2 sec (9.27-12.13)
[2018-10-01 04:16] LABS: Urine Bacteria NONE SEEN /hpf (None Seen); Urine Blood Negative /uL (Negative); Urine Specific Gravity 1.008 (1.001-1.035); Urine WBC 1 /hpf (0 - 3)
[2018-10-01 04:40] LABS: Alcohol, Urine < 3.0 mg/dL (0-5); Amphetamine Screen, Urine NEGATIVE (NEGATIVE); Barbiturate Scree,Urine NEGATIVE (NEGATIVE); Benzodiazephine Screen, Urine NEGATIVE (NEGATIVE); Cannabinoid Screen, Urine NEGATIVE (NEGATIVE); Cocaine Screen, Urine NEGATIVE (NEGATIVE); Opiate Scree,Urine NEGATIVE (NEGATIVE); Phencyclidine Screen, Urine NEGATIVE (NEGATIVE)
[2018-10-01 06:42] VITALS: BP 141/98
== END 2018-10-01 06:43 | disposition home or self-care (01) ==
LOC: ER 20:42
DX: J44.1 Chronic obstructive pulmonary disease with (acute) exacerbation (principal); I10 Essential (primary) hypertension; E11.65 Type 2 diabetes mellitus with hyperglycemia; E78.5 Hyperlipidemia, unspecified; M19.90 Unspecified osteoarthritis, unspecified site; Z79.899 Other long term (current) drug therapy
CPT/HCPCS: 36415; 70450; 71046; 80053; 80307; 81001; 82962; 83735; 83880; 84443; 84484; 85025; 85379; 85610; 85730; 93005

== ENCOUNTER 2018-12-24 21:25 | Inpatient (IN) | payer OTHER ==
[~2018-12-24] VITALS: Ht 167.6 cm; Wt 95.7 kg
[2018-12-24] MEDS ORDERED: ALBUTEROL SULF 2.5 MG/0.5ML(0.5%) NEB SOLN HHN STA (21:36)
[2018-12-24] MEDS ORDERED: IPRATROPIUM BROM 0.5 MG/2.5ML INH SOL NEB ONE (21:45)
[2018-12-24 22:33] LABS: Basophils # (auto) 0.1 uL; Basophils % (auto) 0.8 % (0.0-2.0)
[2018-12-24 22:37] LABS: Eosinophils # (auto) 0.3 uL; Hematocrit 43.3 % (41.0-53.0); Hemoglobin 13.5 g/dL (13.5-17.5); Lymphocytes # (auto) 0.7 uL; Lymphocytes % (auto) 5.3 % (10.0-50.0); Mean Corpuscular Hemoglobin 26.4 pg (28.0-32.0); Mean Corpuscular Hgb Conc. 31.2 g/dL (32.0-36.0); Mean Corpuscular Volume 84.7 fL (80.0-100.0); Monocytes # (auto) 1.1 uL; Monocytes % (auto) 8.2 % (0.0-12.0); Neutrophils # (auto) 11.3 uL; Neutrophils % (auto) 83.7 % (37.0-80.0); Platelet Count (auto) 273 10^3/uL (140-450); Red Blood Cells 5.11 10^6/uL (4.5-5.90); Red Cell Distribution Width 17.8 % (11.8-14.3); White Blood Cell 13.5 10^3/uL (4.4-10.8)
[2018-12-24 22:45] LABS: Chloride 104 mmol/L (98-107); Potassium 4.5 mmol/L (3.5-5.1); Sodium 139 mmol/L (136-145)
[2018-12-24 22:54] LABS: Alanine Aminotransferase 33 U/L (16-61); Alkaline Phosphatase 101 U/L (45-117); Anion Gap 10 (5-15); Aspartate Aminotransferase 15 U/L (15-37); BUN/Creatinine Ratio 14.1; Bilirubin, Total 0.5 mg/dL (0.2-1.0); Blood Urea Nitrogen 14 mg/dL (7-18); Calcium 8.7 mg/dL (8.5-10.1); Carbon Dioxide 25 mmol/L (21-32); GFR African American 93 mL/min; GFR Non-African American 77 mL/min; Glucose 179 mg/dL (74-106); Total Protein 7.8 g/dL (6.4-8.2)
[2018-12-25] MEDS ORDERED: methylPREDNISolone SOD SUCC 125 MG/2 ML VL IV ONE (05:15)
[2018-12-25] MEDS ORDERED: ALBUTEROL SULF 2.5 MG/0.5ML(0.5%) NEB SOLN NEB ONE ×2 (05:15→08:30)
[2018-12-25] MEDS ORDERED: IPRATROPIUM BROM 0.5 MG/2.5ML INH SOL NEB ONE ×2 (05:15→08:30)
[2018-12-25] MEDS ORDERED: FUROSEMIDE 40 MG/4 ML VIAL IV ONE (08:30)
[2018-12-25] MEDS ORDERED: SODIUM CHLORIDE 0.9% 1,000 ML IV ONE (08:30)
[2018-12-25] MEDS ORDERED: ONDANSETRON HCL 4 MG/2 ML VIAL IV PRN (09:15)
[2018-12-25] MEDS ORDERED: ACETAMINOPHEN 500 MG TAB PO PRN (09:15)
[2018-12-25] MEDS ORDERED: hydrALAZINE HCL 20 MG/ML VL IV PRN (09:15)
[2018-12-25] MEDS ORDERED: MORPHINE SULF INJ 2 MG/ML SYRINGE 1ML IV PRN ×2 (09:15)
[2018-12-25] MEDS ORDERED: NITROGLYCERIN 0.4 MG SL TAB SL PRN (09:15)
[2018-12-25] MEDS ORDERED: HYDROcodone-ACET 5/325MG TAB PO PRN (09:15)
[2018-12-25] MEDS ORDERED: DEXTROSE (50%) 50ML SYRG IV PRN (09:15)
[2018-12-25 09:48] VITALS: BP 124/81
[2018-12-25 10:18] LABS: Partial Thromboplastin Time 33.1 sec (23.64-32.05)
[2018-12-25 10:30] VITALS: BP 135/76
--- NOTE | 2018-12-25 11:00 | NUR ---
Telemetry admit from [facility] admitted to Telemetry unit after SBAR received. Patient oriented to Liliana Chandler, RN primary RN, unit, room, bed, and unit policies regarding patient care and visiting hours. Patient now on continuous telemetry monitoring, tele box # 21 and telemetry reading on arrival to unit is SR 94. Patient placed on bedside oxygen, weighed by bedscale and encouraged to call if they need something. All questions and concerns addressed, patient verbalized understanding. Note:
[2018-12-25] MEDS: cefTRIAXone 1GM/50ML D5W 50 ML IV SCH (11:23)
[2018-12-25] MEDS: ATORVASTATIN 20 MG TAB PO SCH (11:24)
[2018-12-25] MEDS: PARoxetine 20 MG TAB PO SCH (11:24)
[2018-12-25] MEDS: LOSARTAN POTASSIUM 25 MG TAB PO SCH (11:24)
[2018-12-25] MEDS: ASPirin 81 mg TAB PO SCH (11:24)
[2018-12-25] MEDS: InsuLIN REG 1unit/0.01ml Soln (100units/ml) SC SCH ×3 (11:30→21:36)
[2018-12-25] MEDS: ACCU-CHEK COMFORT CURVE STRIP VI SCH ×3 (11:34→21:35)
[2018-12-25] MEDS: FAMOTIDINE 20 MG TAB PO SCH (11:42)
[2018-12-25] MEDS ORDERED: GLIP-115 PO (11:49)
[2018-12-25] MEDS ORDERED: HYDR500C PO (11:49)
[2018-12-25 12:00] VITALS: BP 135/76
[2018-12-25] MEDS: AZITHROMYCIN 500MG/ 250ML 250 ML IV SCH (13:04)
[2018-12-25] MEDS: BUDESONIDE (INHALATION) 0.5 MG/2 ML NEB NEB SCH ×2 (14:50→20:07)
[2018-12-25] MEDS: IPRATROPIUM BROM 0.5 MG/2.5ML INH SOL NEB SCH ×2 (14:54→20:07)
[2018-12-25] MEDS: ALBUTEROL SULF 2.5 MG/0.5ML(0.5%) NEB SOLN NEB SCH ×2 (14:55→20:07)
[2018-12-25 17:00] VITALS: BP 116/65
[2018-12-25] MEDS: TAMSULOSIN HYDROCHLORIDE 0.4 MG CAP PO SCH (17:35)
--- NOTE | 2018-12-25 19:20 | NUR ---
Opening Shift Note Assumed care of patient, awake and alert. No S/S of distress/SOB or pain. Instructed on POC and to call for assist PRN. Bed in lowest locked position, call light within reach, side rails up x2, fall precautions in place. Will continue to monitor for changes Q1hr and PRN.
[2018-12-25 22:00] VITALS: BP 123/73
[2018-12-26 05:43] VITALS: BP 121/74
[2018-12-26] MEDS: InsuLIN REG 1unit/0.01ml Soln (100units/ml) SC SCH ×3 (06:33→17:52)
[2018-12-26] MEDS: ACCU-CHEK COMFORT CURVE STRIP VI SCH ×3 (06:33→17:52)
[2018-12-26 06:57] LABS: Basophils # (auto) 0 uL; Eosinophils # (auto) 0.1 uL; Lymphocytes # (auto) 1.1 uL; Mean Corpuscular Hemoglobin 26.3 pg (28.0-32.0)
[2018-12-26 07:00] LABS: Basophils % (auto) 0.4 % (0.0-2.0); Eosinophils % (auto) 0.6 % (0.0-7.0); Hematocrit 40.4 % (41.0-53.0); Hemoglobin 12.7 g/dL (13.5-17.5); Lymphocytes % (auto) 7.7 % (10.0-50.0); Mean Corpuscular Hgb Conc. 31.5 g/dL (32.0-36.0); Mean Corpuscular Volume 83.5 fL (80.0-100.0); Neutrophils % (auto) 84.3 % (37.0-80.0); Platelet Count (auto) 276 10^3/uL (140-450); Red Blood Cells 4.83 10^6/uL (4.5-5.90); Red Cell Distribution Width 17.2 % (11.8-14.3); White Blood Cell 14.2 10^3/uL (4.4-10.8)
[2018-12-26] MEDS: ALBUTEROL SULF 2.5 MG/0.5ML(0.5%) NEB SOLN NEB SCH ×3 (07:09→18:20)
[2018-12-26] MEDS: IPRATROPIUM BROM 0.5 MG/2.5ML INH SOL NEB SCH ×3 (07:09→18:20)
[2018-12-26 07:13] LABS: BUN/Creatinine Ratio 29.7; Calcium 8.5 mg/dL (8.5-10.1); Potassium 3.8 mmol/L (3.5-5.1)
--- NOTE | 2018-12-26 07:25 | NUR ---
Open Shift Note Received report on patient, awake and sitting up in bed. Patient shows no signs of distress at this time. Discussed POC with patient. Patient states slight abdominal pain with not having bowel movement. Told patient that doctor will be informed as well as taught patient ways to promote bowel stimulation. Patient verbalized understanding. Bed in lowest locked position, side rails up x2 and call light within reach. Will continue to monitor.
[2018-12-26 08:00] VITALS: BP 126/78
[2018-12-26] MEDS: cefTRIAXone 1GM/50ML D5W 50 ML IV SCH (09:29)
[2018-12-26] MEDS: FAMOTIDINE 20 MG TAB PO SCH (09:31)
[2018-12-26] MEDS: ATORVASTATIN 20 MG TAB PO SCH (09:31)
[2018-12-26] MEDS: PARoxetine 20 MG TAB PO SCH (09:32)
[2018-12-26] MEDS: LOSARTAN POTASSIUM 25 MG TAB PO SCH (09:32)
[2018-12-26] MEDS: ASPirin 81 mg TAB PO SCH (09:33)
[2018-12-26] MEDS: BUDESONIDE (INHALATION) 0.5 MG/2 ML NEB NEB SCH ×2 (11:17→18:21)
[2018-12-26] MEDS: AZITHROMYCIN 500MG/ 250ML 250 ML IV SCH (11:23)
[2018-12-26 12:00] VITALS: BP 132/72
--- NOTE | 2018-12-26 14:39 | NUR ---
Rebecca Albert in regards to Dr Fuller wanting to speak with the doctor about transfer of service. Awaiting call back.
--- NOTE | 2018-12-26 15:00 | NUR ---
Dr Smith Spoke With Dr Alina Smith called and spoke with Dr Fuller to inform him of transfer.
[2018-12-26 16:00] VITALS: BP 111/67
--- NOTE | 2018-12-26 17:45 | NUR ---
Dr Fuller at Patient Bedside DR Fuller at patient bedside, using medical record consultant.
[2018-12-26] MEDS: TAMSULOSIN HYDROCHLORIDE 0.4 MG CAP PO SCH (17:52)
--- NOTE | 2018-12-26 17:56 | NUR ---
Urine Sent To Lab Urine sample sent to lab.
[2018-12-26 17:58] LABS: Urine WBC None Seen /hpf (0 - 3)
[2018-12-26 18:15] LABS: Urine Bacteria NONE SEEN /hpf (None Seen); Urine Blood Negative /uL (Negative); Urine Specific Gravity 1.009 (1.001-1.035)
--- NOTE | 2018-12-26 18:21 | NUR ---
Called Patient's Daughter Called and spoke with patient's daughter Pura to inform her of patient's discharge and prescriptions. Also informed daughter that patient's home O2 will need to be brought so he can have it during transport. Pura verbalized understanding. Pura [phone]
--- NOTE | 2018-12-26 18:52 | NUR ---
Discharge Instructions Given-Waiting For Ride Patient given discharge papers and with use of back tender instructed to follow up with PCP on Saturday when office open. Patient verbalized understanding. Prescription given to patient and instructed to take to pharmacy of choice. All questions answered. IV removed using clean sterile technique. Tele removed, cleaned and sent to [facility]. Patient shows no signs of distress at this time. Patient waiting for daughter Pura to deliver home .
--- NOTE | 2018-12-26 19:12 | NUR ---
Patient Taken To Lobby Patient taken downstairs to lobby via wheelchair and portable oxygen along with family to wait for patient's daughter to deliver home O2. No distress noted.
== END 2018-12-26 19:15 | disposition home or self-care (01) | DRG 189 ==
LOC: ER 21:28 → TELE-EAST 21:29
PROVIDERS: ADMIT Nurse Practitioner Acute Care; ATTEND Internal Medicine
DX: J96.20 Acute and chronic respiratory failure, unspecified whether with hypoxia or hypercapnia (principal); J44.1 Chronic obstructive pulmonary disease with (acute) exacerbation; E11.65 Type 2 diabetes mellitus with hyperglycemia; F32.9 Major depressive disorder, single episode, unspecified; N40.0 Benign prostatic hyperplasia without lower urinary tract symptoms; D45 Polycythemia vera; E66.9 Obesity, unspecified; E78.5 Hyperlipidemia, unspecified; G47.00 Insomnia, unspecified; I10 Essential (primary) hypertension; M19.90 Unspecified osteoarthritis, unspecified site; Z79.899 Other long term (current) drug therapy; Z82.49 Family history of ischemic heart disease and other diseases of the circulatory system; Z82.3 Family history of stroke; Z87.891 Personal history of nicotine dependence; Z99.81 Dependence on supplemental oxygen; Z79.84 Long term (current) use of oral hypoglycemic drugs; Z79.82 Long term (current) use of aspirin; Z87.01 Personal history of pneumonia (recurrent); Z82.5 Family history of asthma and other chronic lower respiratory diseases; Z83.3 Family history of diabetes mellitus
CPT/HCPCS: 36415; 71045; 80048; 80053; 81001; 82962; 83880; 84484; 85025; 85379; 85610; 85730; 87086; 87804; 93005; 94640; 94761; 96361; 96365; 96375; G0378; J0696; J1815

== ENCOUNTER 2020-08-25 13:06 | Inpatient (IN) | payer OTHER ==
[~2020-08-25] VITALS: Ht 170.2 cm; Wt 88.5 kg
[~2020-08-25 13:06] MED LIST changes: -ALBUAER3 IN; -ATOR20TA PO; +GLIP5TAB12 PO; -GUAI600T23 PO; +HYDR500C PO; -IPRA0.03; -LEVO750T2 PO; +LOSA25TA38 PO; -LOSA25TA40 PO; -PANT40T PO; -PRED1PAK7 PO
[2020-08-25] MEDS ORDERED: ZINC SULFATE 220mg CAP or TAB PO ONE (13:30)
[2020-08-25] MEDS ORDERED: methylPREDNISolone SOD SUCC 125 MG/2 ML VL IV ONE (13:30)
[2020-08-25] MEDS ORDERED: ASCORBIC ACID 500 MG TAB PO ONE (13:30)
[2020-08-25] MEDS ORDERED: CHOLECALCIFEROL (VITD3) 2,000 UNIT CAP/TAB PO ONE (13:30)
[2020-08-25] MEDS ORDERED: AZITHROMYCIN 500MG/ 250ML 250 ML IV ONE (13:30)
[2020-08-25 14:02] LABS: Basophils # (auto) 0 10 ^3/uL (0-0.2); Eosinophils # (auto) 0 10 ^3/uL (0-0.8); Eosinophils % (auto) 0.6 % (0.0-7.0); Hematocrit 49.5 % (41.0-53.0); Hemoglobin 16.4 g/dL (13.5-17.5); Lymphocytes # (auto) 0.2 10 ^3/uL (0.4-5.4); Lymphocytes % (auto) 5.3 % (10.0-50.0); Mean Corpuscular Hemoglobin 33.2 pg (28.0-32.0); Mean Corpuscular Hgb Conc. 33.1 g/dL (32.0-36.0); Mean Corpuscular Volume 100.2 fL (80.0-100.0); Monocytes # (auto) 0.3 10 ^3/uL (0-1.3); Monocytes % (auto) 7.5 % (0.0-12.0); Neutrophils # (auto) 3.7 10 ^3/uL (1.6-8.6); Neutrophils % (auto) 85.6 % (37.0-80.0); Nucleated Red Blood Cells % 0.5 %; Platelet Count (auto) 313 10^3/uL (140-450); Red Blood Cells 4.94 10^6/uL (4.5-5.90); Red Cell Distribution Width 16.7 % (11.8-14.3); White Blood Cell 4.3 10^3/uL (4.4-10.8)
[2020-08-25] MEDS ORDERED: MORPHINE SULF INJ 2 MG/ML SYRINGE 1ML IV PRN (14:15)
[2020-08-25] MEDS ORDERED: NITROGLYCERIN 0.4 MG SL TAB SL PRN (14:15)
[2020-08-25 14:18] LABS: Albumin 3.4 g/dL (3.4-5.0); Calcium 7.8 mg/dL (8.5-10.1)
[2020-08-25 14:27] LABS: BUN/Creatinine Ratio 20.5; Bilirubin, Total 0.7 mg/dL (0.2-1.0); CRP High Sensitivity 2.14 mg/dL (< 0.3); Total Protein 7.2 g/dL (6.4-8.2)
[2020-08-25] MEDS ORDERED: DEXTROSE (50%) 50ML SYRG IV PRN (14:30)
[2020-08-25] MEDS ORDERED: ALBUTEROL SULF 2.5 MG/0.5ML(0.5%) NEB SOLN HHN ONE (15:15)
[2020-08-25] MEDS ORDERED: IPRATROPIUM BROM 0.5 MG/2.5ML INH SOL HHN ONE (15:15)
[2020-08-25] MEDS: InsuLIN REG 1unit/0.01ml Soln (100units/ml) SC SCH ×2 (17:00→22:24)
[2020-08-25 17:36] VITALS: BP 106/59
[2020-08-25] MEDS: ACCU-CHEK COMFORT CURVE STRIP VI SCH ×3 (17:36→22:23)
[2020-08-25 18:58] LABS: Urine Bacteria NONE SEEN /hpf (None Seen); Urine Blood Negative /uL (Negative); Urine Mucus FEW (None Seen); Urine Specific Gravity 1.021 (1.001-1.035); Urine WBC 1 /hpf (0 - 3)
[2020-08-25] MEDS: ASCORBIC ACID 500 MG TAB PO SCH (21:19)
[2020-08-25 22:11] VITALS: BP 103/63
[2020-08-26 05:17] VITALS: BP 123/78
[2020-08-26] MEDS: InsuLIN REG 1unit/0.01ml Soln (100units/ml) SC SCH ×4 (06:12→22:13)
[2020-08-26 06:15] LABS: Basophils # (auto) 0 10 ^3/uL (0-0.2); Basophils % (auto) 0.3 % (0.0-2.0); Eosinophils # (auto) 0 10 ^3/uL (0-0.8); Eosinophils % (auto) 0.1 % (0.0-7.0); Hematocrit 47.7 % (41.0-53.0); Lymphocytes # (auto) 0.3 10 ^3/uL (0.4-5.4); Lymphocytes % (auto) 6.6 % (10.0-50.0); Mean Corpuscular Hemoglobin 33.5 pg (28.0-32.0); Mean Corpuscular Hgb Conc. 33.6 g/dL (32.0-36.0); Mean Corpuscular Volume 99.6 fL (80.0-100.0); Monocytes # (auto) 0.2 10 ^3/uL (0-1.3); Monocytes % (auto) 5.9 % (0.0-12.0); Neutrophils # (auto) 3.4 10 ^3/uL (1.6-8.6); Neutrophils % (auto) 87.1 % (37.0-80.0); Nucleated Red Blood Cells % 0.1 %; Platelet Count (auto) 314 10^3/uL (140-450); Red Blood Cells 4.79 10^6/uL (4.5-5.90); Red Cell Distribution Width 16.9 % (11.8-14.3); White Blood Cell 3.9 10^3/uL (4.4-10.8)
[2020-08-26 06:30] LABS: Potassium 4.7 mmol/L (3.5-5.1)
[2020-08-26] MEDS: ASCORBIC ACID 500 MG TAB PO SCH ×2 (08:45→22:12)
[2020-08-26] MEDS: ZINC SULFATE 220mg CAP or TAB PO SCH (08:45)
[2020-08-26] MEDS: AZITHROMYCIN 500MG/ 250ML 250 ML IV SCH (08:45)
[2020-08-26] MEDS: DexAMETHasone SOD PHOS 10MG/1ML VIAL INJ IV SCH (08:45)
[2020-08-26 09:00] VITALS: BP 107/63
[2020-08-26 10:05] VITALS: BP 107/63
[2020-08-26] MEDS: ACCU-CHEK COMFORT CURVE STRIP VI SCH ×3 (11:26→22:10)
[2020-08-26] MEDS: ENOXAPARIN SOD 40 MG/0.4 ML SYRINGE SC SCH (11:41)
[2020-08-26 12:53] VITALS: BP 120/66
[2020-08-26] MEDS: ALBUTEROL SULF HFA 90MCG INH 200DOSE IN SCH ×2 (13:46→19:10)
[2020-08-26 17:00] VITALS: BP 118/68
[2020-08-26 22:00] VITALS: BP 115/76
[2020-08-26] MEDS ORDERED: ALBUTEROL SULF 2.5 MG/0.5ML(0.5%) NEB SOLN ONE (23:56)
[2020-08-27] MEDS ORDERED: METOPROLOL TARTRATE 50 MG TAB PO ONE
[2020-08-27] MEDS ORDERED: ALBUTEROL SULF 2.5 MG/0.5ML(0.5%) NEB SOLN ONE (04:02)
[2020-08-27] MEDS: ALBUTEROL SULF 2.5 MG/0.5ML(0.5%) NEB SOLN NEB PRN (04:27)
[2020-08-27 05:00] VITALS: BP 137/98
[2020-08-27] MEDS: ACCU-CHEK COMFORT CURVE STRIP VI SCH ×4 (06:47→22:25)
[2020-08-27] MEDS: InsuLIN REG 1unit/0.01ml Soln (100units/ml) SC SCH ×4 (06:47→22:32)
[2020-08-27] MEDS: ALBUTEROL SULF HFA 90MCG INH 200DOSE IN SCH ×2 (06:47→14:00)
[2020-08-27 09:00] VITALS: BP 141/95
[2020-08-27] MEDS: ZINC SULFATE 220mg CAP or TAB PO SCH (09:30)
[2020-08-27] MEDS: ENOXAPARIN SOD 40 MG/0.4 ML SYRINGE SC SCH (09:30)
[2020-08-27] MEDS: AZITHROMYCIN 500MG/ 250ML 250 ML IV SCH (09:30)
[2020-08-27] MEDS: ASCORBIC ACID 500 MG TAB PO SCH ×2 (09:30→22:25)
[2020-08-27] MEDS: DexAMETHasone SOD PHOS 10MG/1ML VIAL INJ IV SCH (09:30)
[2020-08-27 10:31] LABS: Eosinophils # (auto) 0 10 ^3/uL (0-0.8); Monocytes # (auto) 0.8 10 ^3/uL (0-1.3); White Blood Cell 12.2 10^3/uL (4.4-10.8)
[2020-08-27 10:33] LABS: Basophils # (auto) 0.1 10 ^3/uL (0-0.2); Basophils % (auto) 1.1 % (0.0-2.0); Hematocrit 55.3 % (41.0-53.0); Lymphocytes # (auto) 0.2 10 ^3/uL (0.4-5.4); Lymphocytes % (auto) 1.6 % (10.0-50.0); Mean Corpuscular Hemoglobin 32.7 pg (28.0-32.0); Mean Corpuscular Hgb Conc. 32.5 g/dL (32.0-36.0); Mean Corpuscular Volume 100.6 fL (80.0-100.0); Monocytes % (auto) 6.4 % (0.0-12.0); Neutrophils # (auto) 11.1 10 ^3/uL (1.6-8.6); Neutrophils % (auto) 90.9 % (37.0-80.0); Nucleated Red Blood Cells % 0.3 %; Platelet Count (auto) 484 10^3/uL (140-450); Red Cell Distribution Width 17.2 % (11.8-14.3)
[2020-08-27 10:49] LABS: Calcium 8.5 mg/dL (8.5-10.1); Potassium 4.5 mmol/L (3.5-5.1)
[2020-08-27 13:00] VITALS: BP 136/83
[2020-08-27 17:00] VITALS: BP 127/86
[2020-08-27] MEDS: ALBUTEROL SULF 2.5 MG/0.5ML(0.5%) NEB SOLN NEB SCH (18:29)
[2020-08-27 20:00] VITALS: BP 147/68
[2020-08-27 21:43] VITALS: BP 147/68
[2020-08-28 05:00] VITALS: BP 134/91
[2020-08-28 06:15] LABS: Basophils # (auto) 0 10 ^3/uL (0-0.2); Eosinophils # (auto) 0 10 ^3/uL (0-0.8); Hemoglobin 17.6 g/dL (13.5-17.5); Lymphocytes # (auto) 0.2 10 ^3/uL (0.4-5.4); Monocytes # (auto) 0.6 10 ^3/uL (0-1.3)
[2020-08-28 06:17] LABS: Basophils % (auto) 0.1 % (0.0-2.0); Hematocrit 52.1 % (41.0-53.0); Lymphocytes % (auto) 2.1 % (10.0-50.0); Mean Corpuscular Hemoglobin 33.4 pg (28.0-32.0); Mean Corpuscular Hgb Conc. 33.7 g/dL (32.0-36.0); Mean Corpuscular Volume 98.9 fL (80.0-100.0); Monocytes % (auto) 6.6 % (0.0-12.0); Neutrophils # (auto) 8.8 10 ^3/uL (1.6-8.6); Neutrophils % (auto) 91.2 % (37.0-80.0); Nucleated Red Blood Cells % 0.7 %; Platelet Count (auto) 489 10^3/uL (140-450); Red Blood Cells 5.26 10^6/uL (4.5-5.90); Red Cell Distribution Width 16.9 % (11.8-14.3); White Blood Cell 9.7 10^3/uL (4.4-10.8)
[2020-08-28 06:20] LABS: BUN/Creatinine Ratio 29.2; Calcium 8.4 mg/dL (8.5-10.1); Potassium 4.4 mmol/L (3.5-5.1)
[2020-08-28] MEDS: ALBUTEROL SULF 2.5 MG/0.5ML(0.5%) NEB SOLN NEB SCH ×3 (06:33→18:45)
[2020-08-28] MEDS: InsuLIN REG 1unit/0.01ml Soln (100units/ml) SC SCH ×4 (06:43→22:01)
[2020-08-28] MEDS: ACCU-CHEK COMFORT CURVE STRIP VI SCH ×4 (06:43→21:56)
[2020-08-28 09:00] VITALS: BP 147/81
[2020-08-28] MEDS: ALBUTEROL SULF 2.5 MG/0.5ML(0.5%) NEB SOLN NEB PRN (09:24)
[2020-08-28] MEDS: ZINC SULFATE 220mg CAP or TAB PO SCH (10:54)
[2020-08-28] MEDS: ASCORBIC ACID 500 MG TAB PO SCH ×2 (10:54→21:55)
[2020-08-28] MEDS: DexAMETHasone SOD PHOS 10MG/1ML VIAL INJ IV SCH (10:55)
[2020-08-28] MEDS: ENOXAPARIN SOD 40 MG/0.4 ML SYRINGE SC SCH (10:55)
[2020-08-28] MEDS: AZITHROMYCIN 500MG/ 250ML 250 ML IV SCH (10:55)
[2020-08-28 13:00] VITALS: BP 126/79
[2020-08-28] MEDS ORDERED: LORazepam 2MG/ML-1ML VIAL IV SCH (14:00)
[2020-08-28 17:00] VITALS: BP 155/76
[2020-08-28 20:00] VITALS: BP 120/74
[2020-08-28 22:00] VITALS: BP 121/75
[2020-08-29 05:00] VITALS: BP 139/89
[2020-08-29 05:53] LABS: Basophils # (auto) 0 10 ^3/uL (0-0.2); Eosinophils # (auto) 0 10 ^3/uL (0-0.8); Hemoglobin 17.9 g/dL (13.5-17.5); Lymphocytes # (auto) 0.2 10 ^3/uL (0.4-5.4); Neutrophils # (auto) 9.3 10 ^3/uL (1.6-8.6)
[2020-08-29] MEDS: ALBUTEROL SULF 2.5 MG/0.5ML(0.5%) NEB SOLN NEB SCH ×3 (05:53→18:41)
[2020-08-29 05:55] LABS: Basophils % (auto) 0.3 % (0.0-2.0); Eosinophils % (auto) 0.2 % (0.0-7.0); Hematocrit 53.4 % (41.0-53.0); Lymphocytes % (auto) 2.2 % (10.0-50.0); Mean Corpuscular Hemoglobin 33.4 pg (28.0-32.0); Mean Corpuscular Hgb Conc. 33.5 g/dL (32.0-36.0); Mean Corpuscular Volume 99.6 fL (80.0-100.0); Monocytes # (auto) 0.9 10 ^3/uL (0-1.3); Monocytes % (auto) 8.9 % (0.0-12.0); Neutrophils % (auto) 88.4 % (37.0-80.0); Nucleated Red Blood Cells % 0.1 %; Platelet Count (auto) 517 10^3/uL (140-450); Red Blood Cells 5.37 10^6/uL (4.5-5.90); Red Cell Distribution Width 16.5 % (11.8-14.3); White Blood Cell 10.5 10^3/uL (4.4-10.8)
[2020-08-29 06:02] LABS: Calcium 8.5 mg/dL (8.5-10.1); Potassium 4.4 mmol/L (3.5-5.1)
[2020-08-29 06:10] LABS: BUN/Creatinine Ratio 27.8
[2020-08-29] MEDS: ACCU-CHEK COMFORT CURVE STRIP VI SCH ×4 (06:57→21:14)
[2020-08-29] MEDS: InsuLIN REG 1unit/0.01ml Soln (100units/ml) SC SCH ×4 (07:01→21:25)
[2020-08-29] MEDS: ASCORBIC ACID 500 MG TAB PO SCH ×2 (08:36→21:14)
[2020-08-29] MEDS: ZINC SULFATE 220mg CAP or TAB PO SCH (08:36)
[2020-08-29] MEDS: DexAMETHasone SOD PHOS 10MG/1ML VIAL INJ IV SCH (08:36)
[2020-08-29] MEDS: AZITHROMYCIN 500MG/ 250ML 250 ML IV SCH (08:36)
[2020-08-29] MEDS: ENOXAPARIN SOD 40 MG/0.4 ML SYRINGE SC SCH (08:37)
[2020-08-29 09:00] VITALS: BP 124/71
[2020-08-29 13:00] VITALS: BP 119/74
[2020-08-29 16:53] VITALS: BP 109/74
[2020-08-29 22:00] VITALS: BP 98/54
[2020-08-30 05:00] VITALS: BP 104/55
[2020-08-30 06:07] LABS: Basophils # (auto) 0 10 ^3/uL (0-0.2); Basophils % (auto) 0.2 % (0.0-2.0); Eosinophils # (auto) 0.2 10 ^3/uL (0-0.8); Hemoglobin 16.5 g/dL (13.5-17.5); Lymphocytes # (auto) 0.4 10 ^3/uL (0.4-5.4); Mean Corpuscular Hgb Conc. 33.5 g/dL (32.0-36.0)
[2020-08-30 06:14] LABS: Eosinophils % (auto) 1.6 % (0.0-7.0); Hematocrit 49.4 % (41.0-53.0); Lymphocytes % (auto) 3.4 % (10.0-50.0); Mean Corpuscular Hemoglobin 33.5 pg (28.0-32.0); Monocytes % (auto) 9.1 % (0.0-12.0); Neutrophils # (auto) 9.4 10 ^3/uL (1.6-8.6); Neutrophils % (auto) 85.7 % (37.0-80.0); Nucleated Red Blood Cells % 0.1 %; Platelet Count (auto) 557 10^3/uL (140-450); Red Blood Cells 4.94 10^6/uL (4.5-5.90); Red Cell Distribution Width 16.2 % (11.8-14.3); White Blood Cell 10.9 10^3/uL (4.4-10.8)
[2020-08-30] MEDS: ALBUTEROL SULF 2.5 MG/0.5ML(0.5%) NEB SOLN NEB SCH ×3 (06:14→18:38)
[2020-08-30 06:16] LABS: Calcium 8.5 mg/dL (8.5-10.1)
[2020-08-30] MEDS: ACCU-CHEK COMFORT CURVE STRIP VI SCH ×4 (06:16→21:26)
[2020-08-30] MEDS: InsuLIN REG 1unit/0.01ml Soln (100units/ml) SC SCH ×4 (06:17→21:26)
[2020-08-30 06:19] LABS: BUN/Creatinine Ratio 33.3
[2020-08-30 08:30] VITALS: BP 129/65
[2020-08-30] MEDS: AZITHROMYCIN 500MG/ 250ML 250 ML IV SCH (09:44)
[2020-08-30] MEDS: DexAMETHasone SOD PHOS 10MG/1ML VIAL INJ IV SCH (09:44)
[2020-08-30] MEDS: ZINC SULFATE 220mg CAP or TAB PO SCH (09:45)
[2020-08-30] MEDS: ASCORBIC ACID 500 MG TAB PO SCH ×2 (09:45→21:17)
[2020-08-30] MEDS: ENOXAPARIN SOD 40 MG/0.4 ML SYRINGE SC SCH (09:45)
[2020-08-30 12:36] VITALS: BP 108/78
[2020-08-30 16:41] VITALS: BP 128/79
[2020-08-30 22:53] VITALS: BP 107/50
[2020-08-31 05:25] VITALS: BP 93/56
[2020-08-31 05:57] LABS: Hematocrit 48.7 % (41.0-53.0)
[2020-08-31 06:01] LABS: Hemoglobin 16.3 g/dL (13.5-17.5); Mean Corpuscular Hemoglobin 33.7 pg (28.0-32.0); Mean Corpuscular Hgb Conc. 33.4 g/dL (32.0-36.0); Mean Corpuscular Volume 101.1 fL (80.0-100.0); Platelet Count (auto) 525 10^3/uL (140-450); Red Blood Cells 4.82 10^6/uL (4.5-5.90); Red Cell Distribution Width 16.6 % (11.8-14.3); White Blood Cell 9.9 10^3/uL (4.4-10.8)
[2020-08-31 06:04] LABS: Potassium 4.1 mmol/L (3.5-5.1)
[2020-08-31 06:05] LABS: Basophils % (manual) 0 (0.0-2.0); Blast Cells 0; Metamyelocytes % 0; Myelocytes % 0; Promyelocytes % 0; Reactive Lymphocytes 0
[2020-08-31 06:10] LABS: BUN/Creatinine Ratio 29.7; Calcium 8.5 mg/dL (8.5-10.1)
[2020-08-31] MEDS: InsuLIN REG 1unit/0.01ml Soln (100units/ml) SC SCH ×4 (06:43→21:56)
[2020-08-31] MEDS: ACCU-CHEK COMFORT CURVE STRIP VI SCH ×4 (06:44→21:55)
[2020-08-31 07:00] LABS: Band Neutrophils % (manual) 14; Eosinophils % (manual) 1 (0-7); Lymphocytes % (manual) 1 (10.0-50.0); Monocytes % (manual) 10 (0-12)
[2020-08-31] MEDS: ALBUTEROL SULF 2.5 MG/0.5ML(0.5%) NEB SOLN NEB SCH ×3 (08:23→22:25)
[2020-08-31 08:30] VITALS: BP 127/68
[2020-08-31] MEDS: DexAMETHasone SOD PHOS 10MG/1ML VIAL INJ IV SCH (08:49)
[2020-08-31] MEDS: ZINC SULFATE 220mg CAP or TAB PO SCH (08:50)
[2020-08-31] MEDS: ENOXAPARIN SOD 40 MG/0.4 ML SYRINGE SC SCH (08:50)
[2020-08-31] MEDS: AZITHROMYCIN 500MG/ 250ML 250 ML IV SCH (08:50)
[2020-08-31] MEDS: ASCORBIC ACID 500 MG TAB PO SCH ×2 (08:50→21:54)
[2020-08-31 12:30] VITALS: BP 111/62
[2020-08-31 17:00] VITALS: BP 131/63
[2020-08-31 20:00] VITALS: BP 102/59
[2020-08-31 22:00] VITALS: BP_SYST 102; BP_SYST 157; BP_DIAS 101; BP_DIAS 59
[2020-09-01 05:00] VITALS: BP 104/51
[2020-09-01] MEDS: ALBUTEROL SULF 2.5 MG/0.5ML(0.5%) NEB SOLN NEB SCH ×3 (06:24→22:10)
[2020-09-01 06:47] LABS: Eosinophils # (auto) 0.2 10 ^3/uL (0-0.8); Lymphocytes # (auto) 0.3 10 ^3/uL (0.4-5.4)
[2020-09-01] MEDS: InsuLIN REG 1unit/0.01ml Soln (100units/ml) SC SCH ×4 (06:48→21:56)
[2020-09-01] MEDS: ACCU-CHEK COMFORT CURVE STRIP VI SCH ×4 (06:48→21:55)
[2020-09-01 06:50] LABS: Basophils # (auto) 0 10 ^3/uL (0-0.2); Basophils % (auto) 0.3 % (0.0-2.0); Eosinophils % (auto) 1.7 % (0.0-7.0); Hematocrit 50.4 % (41.0-53.0); Hemoglobin 16.1 g/dL (13.5-17.5); Lymphocytes % (auto) 2.2 % (10.0-50.0); Mean Corpuscular Hemoglobin 32.2 pg (28.0-32.0); Mean Corpuscular Volume 100.7 fL (80.0-100.0); Monocytes % (auto) 8.6 % (0.0-12.0); Neutrophils # (auto) 10.3 10 ^3/uL (1.6-8.6); Neutrophils % (auto) 87.2 % (37.0-80.0); Nucleated Red Blood Cells % 0.4 %; Platelet Count (auto) 544 10^3/uL (140-450); Red Cell Distribution Width 16.6 % (11.8-14.3); White Blood Cell 11.8 10^3/uL (4.4-10.8)
[2020-09-01 07:10] LABS: Potassium 4.1 mmol/L (3.5-5.1)
[2020-09-01 07:16] LABS: BUN/Creatinine Ratio 32.8; Calcium 8.6 mg/dL (8.5-10.1)
[2020-09-01 09:00] VITALS: BP 123/42
[2020-09-01 09:17] VITALS: BP 104/51
[2020-09-01] MEDS: ASCORBIC ACID 500 MG TAB PO SCH ×2 (09:21→21:55)
[2020-09-01] MEDS: ENOXAPARIN SOD 40 MG/0.4 ML SYRINGE SC SCH (09:21)
[2020-09-01] MEDS: ZINC SULFATE 220mg CAP or TAB PO SCH (09:21)
[2020-09-01] MEDS: AZITHROMYCIN 500MG/ 250ML 250 ML IV SCH (09:21)
[2020-09-01] MEDS: DexAMETHasone SOD PHOS 10MG/1ML VIAL INJ IV SCH (09:21)
[2020-09-01 12:07] VITALS: BP 110/71
[2020-09-01 17:00] VITALS: BP 123/72
[2020-09-01 21:50] VITALS: BP 127/53
[2020-09-01] MEDS ORDERED: CALCIUM CARB 500 MG CHEW TAB PO PRN (22:45)
[2020-09-01] MEDS ORDERED: ONDANSETRON HCL 4 MG/2 ML VIAL IV PRN (22:45)
[2020-09-02 05:00] VITALS: BP 124/65
[2020-09-02 05:55] LABS: Basophils # (auto) 0 10 ^3/uL (0-0.2); Eosinophils # (auto) 0.2 10 ^3/uL (0-0.8); Hemoglobin 16.3 g/dL (13.5-17.5); Lymphocytes # (auto) 0.3 10 ^3/uL (0.4-5.4); Neutrophils # (auto) 10.4 10 ^3/uL (1.6-8.6)
[2020-09-02 05:58] LABS: Basophils % (auto) 0.3 % (0.0-2.0); Eosinophils % (auto) 1.8 % (0.0-7.0); Hematocrit 48.3 % (41.0-53.0); Lymphocytes % (auto) 2.6 % (10.0-50.0); Mean Corpuscular Hemoglobin 33.7 pg (28.0-32.0); Mean Corpuscular Hgb Conc. 33.7 g/dL (32.0-36.0); Mean Corpuscular Volume 100.1 fL (80.0-100.0); Monocytes % (auto) 8.1 % (0.0-12.0); Neutrophils % (auto) 87.2 % (37.0-80.0); Nucleated Red Blood Cells % 0.2 %; Platelet Count (auto) 474 10^3/uL (140-450); Red Blood Cells 4.82 10^6/uL (4.5-5.90); White Blood Cell 11.9 10^3/uL (4.4-10.8)
[2020-09-02 06:15] LABS: BUN/Creatinine Ratio 27.9; Calcium 8.6 mg/dL (8.5-10.1)
[2020-09-02] MEDS: InsuLIN REG 1unit/0.01ml Soln (100units/ml) SC SCH ×4 (06:51→21:52)
[2020-09-02] MEDS: ACCU-CHEK COMFORT CURVE STRIP VI SCH ×4 (06:51→21:52)
[2020-09-02] MEDS: ALBUTEROL SULF 2.5 MG/0.5ML(0.5%) NEB SOLN NEB SCH ×3 (07:40→22:36)
[2020-09-02 08:40] VITALS: BP 128/56
[2020-09-02] MEDS: AZITHROMYCIN 500MG/ 250ML 250 ML IV SCH (09:00)
[2020-09-02] MEDS: ZINC SULFATE 220mg CAP or TAB PO SCH (09:00)
[2020-09-02] MEDS: ENOXAPARIN SOD 40 MG/0.4 ML SYRINGE SC SCH (09:00)
[2020-09-02] MEDS: DexAMETHasone SOD PHOS 10MG/1ML VIAL INJ IV SCH (09:00)
[2020-09-02] MEDS: ASCORBIC ACID 500 MG TAB PO SCH ×2 (09:00→21:52)
[2020-09-02 13:00] VITALS: BP 108/75
[2020-09-02 16:42] VITALS: BP 118/73
[2020-09-02] MEDS: LORazepam 2MG/ML-1ML VIAL IV PRN (17:32)
[2020-09-02 22:00] VITALS: BP 146/82
[2020-09-03 05:00] VITALS: BP 136/96
[2020-09-03] MEDS: ACCU-CHEK COMFORT CURVE STRIP VI SCH ×4 (06:51→21:22)
[2020-09-03] MEDS: InsuLIN REG 1unit/0.01ml Soln (100units/ml) SC SCH ×4 (06:51→21:22)
[2020-09-03] MEDS: ALBUTEROL SULF 2.5 MG/0.5ML(0.5%) NEB SOLN NEB SCH ×3 (07:02→22:21)
[2020-09-03 08:00] VITALS: BP 113/68
[2020-09-03 08:30] VITALS: BP 113/68
[2020-09-03] MEDS: ENOXAPARIN SOD 40 MG/0.4 ML SYRINGE SC SCH (09:31)
[2020-09-03] MEDS: AZITHROMYCIN 500MG/ 250ML 250 ML IV SCH (09:31)
[2020-09-03] MEDS: DexAMETHasone SOD PHOS 10MG/1ML VIAL INJ IV SCH (09:31)
[2020-09-03] MEDS: ZINC SULFATE 220mg CAP or TAB PO SCH (09:31)
[2020-09-03] MEDS: ASCORBIC ACID 500 MG TAB PO SCH ×2 (09:31→21:31)
[2020-09-03 09:41] LABS: Basophils # (auto) 0.1 10 ^3/uL (0-0.2); Eosinophils # (auto) 0.3 10 ^3/uL (0-0.8); Lymphocytes # (auto) 0.5 10 ^3/uL (0.4-5.4); Mean Corpuscular Hgb Conc. 32.9 g/dL (32.0-36.0)
[2020-09-03 09:43] LABS: Basophils % (auto) 0.6 % (0.0-2.0); Eosinophils % (auto) 1.6 % (0.0-7.0); Hematocrit 54.9 % (41.0-53.0); Hemoglobin 18.1 g/dL (13.5-17.5); Lymphocytes % (auto) 3.2 % (10.0-50.0); Mean Corpuscular Hemoglobin 32.8 pg (28.0-32.0); Mean Corpuscular Volume 99.7 fL (80.0-100.0); Monocytes % (auto) 6.5 % (0.0-12.0); Neutrophils # (auto) 13.8 10 ^3/uL (1.6-8.6); Neutrophils % (auto) 88.1 % (37.0-80.0); Nucleated Red Blood Cells % 0.3 %; Platelet Count (auto) 553 10^3/uL (140-450); Red Blood Cells 5.51 10^6/uL (4.5-5.90); White Blood Cell 15.7 10^3/uL (4.4-10.8)
[2020-09-03 10:10] LABS: Potassium 4.2 mmol/L (3.5-5.1)
[2020-09-03 10:15] LABS: BUN/Creatinine Ratio 26.8
[2020-09-03 12:32] VITALS: BP 108/67
[2020-09-03 14:30] LABS: Albumin 3.3 g/dL (3.4-5.0); Bilirubin, Direct 0.2 mg/dL (0-0.2)
[2020-09-03 14:34] LABS: Bilirubin, Total 0.8 mg/dL (0.2-1.0); Total Protein 7.7 g/dL (6.4-8.2)
[2020-09-03] MEDS ORDERED: REMDESIVIR PER PHARMACY 0 ML IV SCH ×2 (15:00)
[2020-09-03 16:33] VITALS: BP 117/72
[2020-09-03] MEDS ORDERED: REMDESIVIR 200 MG in NS 210ml LOADING DOSE ADULT IV ONE (17:00)
[2020-09-03 22:00] VITALS: BP 130/78
[2020-09-03] MEDS: LORazepam 2MG/ML-1ML VIAL IV PRN (22:46)
[2020-09-04 05:00] VITALS: BP 129/71
[2020-09-04 06:48] LABS: Potassium 4.2 mmol/L (3.5-5.1)
[2020-09-04 06:55] LABS: Albumin 2.9 g/dL (3.4-5.0); Bilirubin, Total 0.6 mg/dL (0.2-1.0); Calcium 8.7 mg/dL (8.5-10.1); Total Protein 6.8 g/dL (6.4-8.2)
[2020-09-04] MEDS: ALBUTEROL SULF 2.5 MG/0.5ML(0.5%) NEB SOLN NEB SCH ×3 (06:58→19:01)
[2020-09-04] MEDS: InsuLIN REG 1unit/0.01ml Soln (100units/ml) SC SCH ×4 (07:00→21:26)
[2020-09-04] MEDS: ACCU-CHEK COMFORT CURVE STRIP VI SCH ×4 (07:03→21:14)
[2020-09-04 09:00] VITALS: BP 130/74
[2020-09-04] MEDS: AZITHROMYCIN 500MG/ 250ML 250 ML IV SCH (09:34)
[2020-09-04] MEDS: ASCORBIC ACID 500 MG TAB PO SCH ×2 (09:34→21:13)
[2020-09-04] MEDS: DexAMETHasone SOD PHOS 10MG/1ML VIAL INJ IV SCH (09:34)
[2020-09-04] MEDS: ZINC SULFATE 220mg CAP or TAB PO SCH (09:34)
[2020-09-04] MEDS: ENOXAPARIN SOD 40 MG/0.4 ML SYRINGE SC SCH (09:35)
[2020-09-04 10:26] LABS: Basophils # (auto) 0.2 10 ^3/uL (0-0.2); Basophils % (auto) 1.4 % (0.0-2.0); Eosinophils # (auto) 0.1 10 ^3/uL (0-0.8); Eosinophils % (auto) 0.9 % (0.0-7.0); Hematocrit 49.8 % (41.0-53.0); Hemoglobin 16.4 g/dL (13.5-17.5); Lymphocytes # (auto) 0.4 10 ^3/uL (0.4-5.4); Lymphocytes % (auto) 2.6 % (10.0-50.0); Mean Corpuscular Hemoglobin 33.1 pg (28.0-32.0); Mean Corpuscular Hgb Conc. 32.9 g/dL (32.0-36.0); Mean Corpuscular Volume 100.7 fL (80.0-100.0); Monocytes % (auto) 6.6 % (0.0-12.0); Neutrophils # (auto) 13.5 10 ^3/uL (1.6-8.6); Neutrophils % (auto) 88.5 % (37.0-80.0); Nucleated Red Blood Cells % 0.6 %; Platelet Count (auto) 450 10^3/uL (140-450); Red Blood Cells 4.94 10^6/uL (4.5-5.90); Red Cell Distribution Width 16.1 % (11.8-14.3); White Blood Cell 15.3 10^3/uL (4.4-10.8)
[2020-09-04 13:00] VITALS: BP 140/55
[2020-09-04] MEDS: REMDESIVIR 100mg 100 MG in SODIUM CHL 0.9% 230 ML IV SCH (16:18)
[2020-09-04] MEDS: LORazepam 2MG/ML-1ML VIAL IV PRN ×2 (16:19→23:40)
[2020-09-04 17:00] VITALS: BP 133/76
[2020-09-04 21:44] VITALS: BP 103/64
[2020-09-04] MEDS: ALBUTEROL SULF 2.5 MG/0.5ML(0.5%) NEB SOLN NEB PRN (23:51)
[2020-09-05 05:00] VITALS: BP 120/58
[2020-09-05] MEDS: ALBUTEROL SULF 2.5 MG/0.5ML(0.5%) NEB SOLN NEB SCH ×3 (06:00→19:13)
[2020-09-05 06:21] LABS: Eosinophils # (auto) 0.1 10 ^3/uL (0-0.8); Hemoglobin 16.4 g/dL (13.5-17.5); Lymphocytes # (auto) 0.3 10 ^3/uL (0.4-5.4); Neutrophils % (auto) 90.4 % (37.0-80.0)
[2020-09-05 06:23] LABS: Basophils # (auto) 0.1 10 ^3/uL (0-0.2); Basophils % (auto) 0.4 % (0.0-2.0); Eosinophils % (auto) 0.8 % (0.0-7.0); Hematocrit 49.2 % (41.0-53.0); Lymphocytes % (auto) 2.1 % (10.0-50.0); Mean Corpuscular Hemoglobin 33.1 pg (28.0-32.0); Mean Corpuscular Hgb Conc. 33.3 g/dL (32.0-36.0); Mean Corpuscular Volume 99.3 fL (80.0-100.0); Monocytes % (auto) 6.3 % (0.0-12.0); Neutrophils # (auto) 14.2 10 ^3/uL (1.6-8.6); Nucleated Red Blood Cells % 0.3 %; Platelet Count (auto) 450 10^3/uL (140-450); Red Blood Cells 4.95 10^6/uL (4.5-5.90); Red Cell Distribution Width 15.9 % (11.8-14.3); White Blood Cell 15.7 10^3/uL (4.4-10.8)
[2020-09-05] MEDS: ACCU-CHEK COMFORT CURVE STRIP VI SCH ×4 (06:30→20:32)
[2020-09-05] MEDS: InsuLIN REG 1unit/0.01ml Soln (100units/ml) SC SCH ×4 (06:30→20:34)
[2020-09-05 06:39] LABS: Albumin 2.8 g/dL (3.4-5.0); Calcium 8.5 mg/dL (8.5-10.1); Potassium 4.2 mmol/L (3.5-5.1)
[2020-09-05 06:42] LABS: BUN/Creatinine Ratio 34.9; Bilirubin, Total 0.6 mg/dL (0.2-1.0); Total Protein 6.4 g/dL (6.4-8.2)
[2020-09-05 08:44] VITALS: BP 114/80
[2020-09-05] MEDS: DexAMETHasone SOD PHOS 10MG/1ML VIAL INJ IV SCH (09:18)
[2020-09-05] MEDS: ENOXAPARIN SOD 40 MG/0.4 ML SYRINGE SC SCH (09:19)
[2020-09-05] MEDS: AZITHROMYCIN 500MG/ 250ML 250 ML IV SCH (09:19)
[2020-09-05] MEDS: ASCORBIC ACID 500 MG TAB PO SCH ×2 (09:19→20:32)
[2020-09-05] MEDS: ZINC SULFATE 220mg CAP or TAB PO SCH (09:19)
[2020-09-05] MEDS: CHOLECALCIFEROL (VITD3) 2,000 UNIT CAP/TAB PO SCH (12:19)
[2020-09-05 12:38] VITALS: BP 101/66
[2020-09-05] MEDS: REMDESIVIR 100mg 100 MG in SODIUM CHL 0.9% 230 ML IV SCH (15:53)
[2020-09-05 16:37] VITALS: BP 115/76
[2020-09-05] MEDS: LORazepam 2MG/ML-1ML VIAL IV PRN (20:32)
[2020-09-05 22:39] VITALS: BP 110/61
[2020-09-06 05:00] VITALS: BP 102/61
[2020-09-06] MEDS: ACCU-CHEK COMFORT CURVE STRIP VI SCH ×4 (05:41→21:07)
[2020-09-06] MEDS: InsuLIN REG 1unit/0.01ml Soln (100units/ml) SC SCH ×4 (05:41→21:07)
[2020-09-06] MEDS: ALBUTEROL SULF 2.5 MG/0.5ML(0.5%) NEB SOLN NEB SCH ×3 (05:53→19:22)
[2020-09-06 06:17] LABS: Eosinophils # (auto) 0.1 10 ^3/uL (0-0.8); Hematocrit 50.2 % (41.0-53.0); Lymphocytes # (auto) 0.4 10 ^3/uL (0.4-5.4); Lymphocytes % (auto) 2.3 % (10.0-50.0); Red Blood Cells 5.07 10^6/uL (4.5-5.90)
[2020-09-06 06:20] LABS: Basophils # (auto) 0.2 10 ^3/uL (0-0.2); Basophils % (auto) 0.9 % (0.0-2.0); Eosinophils % (auto) 0.7 % (0.0-7.0); Hemoglobin 16.9 g/dL (13.5-17.5); Mean Corpuscular Hemoglobin 33.3 pg (28.0-32.0); Mean Corpuscular Hgb Conc. 33.6 g/dL (32.0-36.0); Neutrophils # (auto) 15.3 10 ^3/uL (1.6-8.6); Neutrophils % (auto) 90.1 % (37.0-80.0); Nucleated Red Blood Cells % 1.6 %; Platelet Count (auto) 500 10^3/uL (140-450); Red Cell Distribution Width 16.1 % (11.8-14.3)
[2020-09-06 06:41] LABS: Albumin 3.1 g/dL (3.4-5.0); Calcium 8.7 mg/dL (8.5-10.1); Potassium 4.7 mmol/L (3.5-5.1)
[2020-09-06 06:47] LABS: BUN/Creatinine Ratio 33.3; Bilirubin, Total 0.6 mg/dL (0.2-1.0); CRP High Sensitivity 0.38 mg/dL (< 0.3); Total Protein 6.7 g/dL (6.4-8.2)
[2020-09-06 08:45] VITALS: BP 135/87
[2020-09-06] MEDS: DexAMETHasone SOD PHOS 10MG/1ML VIAL INJ IV SCH (09:29)
[2020-09-06] MEDS: AZITHROMYCIN 500MG/ 250ML 250 ML IV SCH (09:29)
[2020-09-06] MEDS: ENOXAPARIN SOD 40 MG/0.4 ML SYRINGE SC SCH (09:30)
[2020-09-06] MEDS: ZINC SULFATE 220mg CAP or TAB PO SCH (09:30)
[2020-09-06] MEDS: ASCORBIC ACID 500 MG TAB PO SCH ×2 (09:30→21:07)
[2020-09-06] MEDS: CHOLECALCIFEROL (VITD3) 2,000 UNIT CAP/TAB PO SCH (09:30)
[2020-09-06 12:47] VITALS: BP 108/70
[2020-09-06] MEDS: REMDESIVIR 100mg 100 MG in SODIUM CHL 0.9% 230 ML IV SCH (15:21)
[2020-09-06 16:41] VITALS: BP 111/63
[2020-09-06] MEDS: LORazepam 2MG/ML-1ML VIAL IV PRN (21:08)
[2020-09-06 22:00] VITALS: BP 124/71
[2020-09-07 05:00] VITALS: BP 104/58
[2020-09-07] MEDS: InsuLIN REG 1unit/0.01ml Soln (100units/ml) SC SCH ×4 (06:14→22:10)
[2020-09-07] MEDS: ACCU-CHEK COMFORT CURVE STRIP VI SCH ×4 (06:14→22:02)
[2020-09-07] MEDS: ALBUTEROL SULF 2.5 MG/0.5ML(0.5%) NEB SOLN NEB SCH ×3 (07:17→22:29)
[2020-09-07 07:29] LABS: Calcium 8.6 mg/dL (8.5-10.1); Potassium 4.3 mmol/L (3.5-5.1)
[2020-09-07 07:32] LABS: BUN/Creatinine Ratio 31.3; Bilirubin, Total 0.6 mg/dL (0.2-1.0); Total Protein 6.4 g/dL (6.4-8.2)
[2020-09-07 08:30] VITALS: BP 118/69
[2020-09-07 08:42] VITALS: BP 118/69
[2020-09-07] MEDS: AZITHROMYCIN 500MG/ 250ML 250 ML IV SCH (10:07)
[2020-09-07] MEDS: ASCORBIC ACID 500 MG TAB PO SCH ×2 (10:07→22:09)
[2020-09-07] MEDS: DexAMETHasone SOD PHOS 10MG/1ML VIAL INJ IV SCH (10:07)
[2020-09-07] MEDS: CHOLECALCIFEROL (VITD3) 2,000 UNIT CAP/TAB PO SCH (10:07)
[2020-09-07] MEDS: ZINC SULFATE 220mg CAP or TAB PO SCH (10:07)
[2020-09-07 13:00] VITALS: BP 115/78
[2020-09-07] MEDS: REMDESIVIR 100mg 100 MG in SODIUM CHL 0.9% 230 ML IV SCH (15:21)
[2020-09-07 16:40] VITALS: BP 107/60
[2020-09-07 22:00] VITALS: BP 108/62
[2020-09-07] MEDS: LORazepam 2MG/ML-1ML VIAL IV PRN (22:32)
[2020-09-08 05:00] VITALS: BP 128/83
[2020-09-08] MEDS: ALBUTEROL SULF 2.5 MG/0.5ML(0.5%) NEB SOLN NEB SCH ×3 (05:52→22:30)
[2020-09-08 06:21] LABS: Basophils # (auto) 0.3 10 ^3/uL (0-0.2); Basophils % (auto) 1.5 % (0.0-2.0); Eosinophils # (auto) 0.1 10 ^3/uL (0-0.8); Eosinophils % (auto) 0.5 % (0.0-7.0); Hematocrit 52.9 % (41.0-53.0); Hemoglobin 17.3 g/dL (13.5-17.5); Lymphocytes # (auto) 0.4 10 ^3/uL (0.4-5.4); Lymphocytes % (auto) 1.9 % (10.0-50.0); Mean Corpuscular Hemoglobin 32.6 pg (28.0-32.0); Mean Corpuscular Hgb Conc. 32.7 g/dL (32.0-36.0); Mean Corpuscular Volume 99.6 fL (80.0-100.0); Monocytes # (auto) 1.2 10 ^3/uL (0-1.3); Neutrophils # (auto) 18.7 10 ^3/uL (1.6-8.6); Neutrophils % (auto) 90.1 % (37.0-80.0); Nucleated Red Blood Cells % 0.1 %; Platelet Count (auto) 513 10^3/uL (140-450); Red Blood Cells 5.31 10^6/uL (4.5-5.90); Red Cell Distribution Width 15.7 % (11.8-14.3); White Blood Cell 20.7 10^3/uL (4.4-10.8)
[2020-09-08] MEDS: ACCU-CHEK COMFORT CURVE STRIP VI SCH ×4 (06:26→22:18)
[2020-09-08] MEDS: InsuLIN REG 1unit/0.01ml Soln (100units/ml) SC SCH ×4 (06:26→22:19)
[2020-09-08 06:31] LABS: Calcium 8.9 mg/dL (8.5-10.1); Potassium 4.5 mmol/L (3.5-5.1)
[2020-09-08 06:34] LABS: BUN/Creatinine Ratio 33.3; CRP High Sensitivity 0.25 mg/dL (< 0.3)
[2020-09-08 08:42] VITALS: BP 132/64
[2020-09-08] MEDS: AZITHROMYCIN 500MG/ 250ML 250 ML IV SCH (09:43)
[2020-09-08] MEDS: ZINC SULFATE 220mg CAP or TAB PO SCH (09:43)
[2020-09-08] MEDS: DexAMETHasone SOD PHOS 10MG/1ML VIAL INJ IV SCH (09:43)
[2020-09-08] MEDS: CHOLECALCIFEROL (VITD3) 2,000 UNIT CAP/TAB PO SCH (09:43)
[2020-09-08] MEDS: ASCORBIC ACID 500 MG TAB PO SCH ×2 (09:43→22:10)
[2020-09-08 13:22] VITALS: BP 123/74
[2020-09-08 16:27] VITALS: BP 114/66
[2020-09-08 21:41] VITALS: BP 114/67
[2020-09-08] MEDS: LORazepam 2MG/ML-1ML VIAL IV PRN (22:10)
[2020-09-09 04:58] VITALS: BP 120/72
[2020-09-09 06:09] LABS: Basophils # (auto) 0.1 10 ^3/uL (0-0.2); Basophils % (auto) 0.7 % (0.0-2.0); Eosinophils # (auto) 0.1 10 ^3/uL (0-0.8); Eosinophils % (auto) 0.8 % (0.0-7.0); Hematocrit 49.2 % (41.0-53.0); Hemoglobin 16.3 g/dL (13.5-17.5); Lymphocytes # (auto) 0.4 10 ^3/uL (0.4-5.4); Lymphocytes % (auto) 2.3 % (10.0-50.0); Mean Corpuscular Hemoglobin 33.1 pg (28.0-32.0); Mean Corpuscular Hgb Conc. 33.1 g/dL (32.0-36.0); Monocytes # (auto) 1.2 10 ^3/uL (0-1.3); Neutrophils % (auto) 89.2 % (37.0-80.0); Nucleated Red Blood Cells % 0.3 %; Platelet Count (auto) 441 10^3/uL (140-450); Red Blood Cells 4.92 10^6/uL (4.5-5.90); Red Cell Distribution Width 15.8 % (11.8-14.3); White Blood Cell 16.9 10^3/uL (4.4-10.8)
[2020-09-09 06:29] LABS: Calcium 8.5 mg/dL (8.5-10.1); Potassium 4.7 mmol/L (3.5-5.1)
[2020-09-09] MEDS: ALBUTEROL SULF 2.5 MG/0.5ML(0.5%) NEB SOLN NEB SCH ×2 (06:30→14:23)
[2020-09-09 06:32] LABS: BUN/Creatinine Ratio 30.3; CRP High Sensitivity 0.15 mg/dL (< 0.3)
[2020-09-09] MEDS: ACCU-CHEK COMFORT CURVE STRIP VI SCH ×2 (06:35→11:12)
[2020-09-09] MEDS: InsuLIN REG 1unit/0.01ml Soln (100units/ml) SC SCH ×2 (06:35→11:13)
[2020-09-09 08:00] VITALS: BP 112/67
[2020-09-09] MEDS: CHOLECALCIFEROL (VITD3) 2,000 UNIT CAP/TAB PO SCH (09:06)
[2020-09-09] MEDS: DexAMETHasone SOD PHOS 10MG/1ML VIAL INJ IV SCH (09:07)
[2020-09-09] MEDS: ASCORBIC ACID 500 MG TAB PO SCH (09:07)
[2020-09-09] MEDS: AZITHROMYCIN 500MG/ 250ML 250 ML IV SCH (09:07)
[2020-09-09] MEDS: ZINC SULFATE 220mg CAP or TAB PO SCH (09:07)
[2020-09-09 09:18] VITALS: BP 106/64
[2020-09-09] MEDS: ALBUTEROL SULF 2.5 MG/0.5ML(0.5%) NEB SOLN NEB PRN (09:41)
[2020-09-09 12:00] VITALS: BP 112/63
== END 2020-09-09 15:30 | disposition home health service (06) | DRG 177 ==
LOC: ER 13:06 → EEVIPCON 13:07 → TELE 13:07 → EDBD 13:07 → TELE-EAST 16:51
PROVIDERS: ADMIT Internal Medicine; ATTEND Internal Medicine
PROC: 5A09457 Assistance with Respiratory Ventilation, 24-96 Consecutive Hours, Continuous Positive Airway Pressure (ICD-10-PCS; 2020-08-27)
PROC: 0BH17EZ Insertion of Endotracheal Airway into Trachea, Via Natural or Artificial Opening (ICD-10-PCS; 2020-08-27)
PROC: 5A09357 Assistance with Respiratory Ventilation, Less than 24 Consecutive Hours, Continuous Positive Airway Pressure (ICD-10-PCS; 2020-08-30)
PROC: XW033E5 Introduction of Remdesivir Anti-infective into Peripheral Vein, Percutaneous Approach, New Technology Group 5 (ICD-10-PCS; principal; 2020-09-03)
DX: U07.1 COVID-19 (principal); J12.82 Pneumonia due to coronavirus disease 2019; J96.01 Acute respiratory failure with hypoxia; E11.9 Type 2 diabetes mellitus without complications; D47.3 Essential (hemorrhagic) thrombocythemia; I10 Essential (primary) hypertension; J43.9 Emphysema, unspecified; F41.9 Anxiety disorder, unspecified; N40.0 Benign prostatic hyperplasia without lower urinary tract symptoms; Z86.73 Personal history of transient ischemic attack (TIA), and cerebral infarction without residual deficits; Z79.82 Long term (current) use of aspirin
CPT/HCPCS: 36415; 36600; 71045; 71250; 80048; 80053; 80076; 81001; 82728; 82805; 82962; 83605; 83735; 83880; 84484; 85007; 85025; 85027; 85379; 86141; 87040; 87426; 93005; 94640; 94644; 94660; 96365; 96375; 99291; G0378; J1100; J1815; J2405

== ENCOUNTER 2022-06-15 08:36 | Inpatient (IN) | payer OTHER, BC ==
[~2022-06-15] VITALS: Ht 167.6 cm; Wt 96.0 kg
[~2022-06-15 08:36] MED LIST changes: -ALPR0.5T7 PO; -IBUP600T27 PO
[2022-06-15] MEDS ORDERED: NITROGLYCERIN 0.4 MG SL TAB SL ONE (09:00)
[2022-06-15] MEDS ORDERED: FUROSEMIDE 40 MG/4 ML VIAL IV ONE (09:00)
[2022-06-15] MEDS ORDERED: methylPREDNISolone SOD SUCC 125 MG/2 ML VL IV ONE (09:00)
[2022-06-15 10:00] LABS: Hemoglobin 15.5 g/dL (13.5-17.5); Mean Corpuscular Hemoglobin 35.4 pg (28.0-32.0); Mean Corpuscular Hgb Conc. 33.6 g/dL (32.0-36.0); Mean Corpuscular Volume 105.4 fL (80.0-100.0); Red Blood Cells 4.37 10^6/uL (4.5-5.90); Red Cell Distribution Width 15.8 % (11.8-14.3); White Blood Cell 15.3 10^3/uL (4.4-10.8)
[2022-06-15 10:13] LABS: Albumin 3.7 g/dL (3.4-5.0); Calcium 8.8 mg/dL (8.5-10.1); Magnesium 2.7 mg/dL (1.6-2.6); Potassium 4.8 mmol/L (3.5-5.1)
[2022-06-15 10:16] LABS: Lactic Acid w/Reflex 2.9 mmol/L (0.4-2.0)
[2022-06-15 10:17] LABS: Basophils % (manual) 0 (0.0-2.0); Blast Cells 0; Metamyelocytes % 0; Myelocytes % 0; Promyelocytes % 0; Reactive Lymphocytes 0
[2022-06-15 10:22] LABS: BUN/Creatinine Ratio 22.7; Bilirubin, Total 0.8 mg/dL (0.2-1.0); Total Protein 7.4 g/dL (6.4-8.2)
[2022-06-15 12:38] LABS: Urine Bacteria FEW /hpf (None Seen); Urine Blood Negative /uL (Negative); Urine Hyaline Cast FEW /lpf (0 - 2); Urine Specific Gravity 1.007 (1.001-1.035); Urine WBC 1 /hpf (0 - 3)
[2022-06-15 13:07] LABS: Band Neutrophils % (manual) 9; Eosinophils % (manual) 2 (0-7); Lymphocytes % (manual) 5 (10.0-50.0); Monocytes % (manual) 4 (0-12)
[2022-06-15] MEDS ORDERED: ONDANSETRON HCL 4 MG/2 ML VIAL IV PRN (13:30)
[2022-06-15] MEDS ORDERED: MORPHINE SULFATE 4 MG/ML SYR/VIAL IV PRN (13:30)
[2022-06-15] MEDS ORDERED: DEXTROSE (50%) 50ML SYRG IV PRN (13:30)
[2022-06-15] MEDS ORDERED: NITROGLYCERIN 0.4 MG SL TAB SL PRN (13:30)
[2022-06-15] MEDS ORDERED: ALBUTEROL SULF 2.5 MG/0.5ML(0.5%) NEB SOLN NEB PRN (13:30)
[2022-06-15] MEDS ORDERED: ACETAMINOPHEN 325 MG TAB PO PRN (13:30)
[2022-06-15] MEDS: methylPREDNISolone SOD SUCC 40 MG/ML VL IV SCH ×2 (14:29→22:26)
[2022-06-15 14:45] VITALS: BP 136/81
[2022-06-15 14:48] LABS: INR 1.13 (0.9-1.15)
[2022-06-15 16:36] LABS: Cholesterol 133 mg/dL (< 200); HDL Cholesterol 37 mg/dL (40-59); LDL Cholesterol 93 mg/dL (< 100); Triglycerides 103 mg/dL (< 150)
[2022-06-15] MEDS: ACCU-CHEK COMFORT CURVE STRIP VI SCH ×2 (18:17→22:15)
[2022-06-15] MEDS: TAMSULOSIN HYDROCHLORIDE 0.4 MG CAP PO SCH (18:17)
[2022-06-15] MEDS: InsuLIN REG 1unit/0.01ml Soln (100units/ml) SC SCH ×2 (18:23→22:17)
[2022-06-15] MEDS: FLUTICASONE SALMETEROL IN SCH (22:00)
[2022-06-15] MEDS: ENOXAPARIN SOD 100 MG/1 ML SYRINGE SC SCH (22:13)
[2022-06-15] MEDS: hydroxyUREA 500 MG CAP PO SCH (22:14)
[2022-06-15] MEDS: ATORVASTATIN 20 MG TAB PO SCH (22:14)
[2022-06-16 05:00] VITALS: BP 132/93
[2022-06-16 05:34] LABS: Basophils # (auto) 0 10 ^3/uL (0-0.2); Eosinophils # (auto) 0 10 ^3/uL (0-0.8); Hemoglobin 15.7 g/dL (13.5-17.5); Lymphocytes # (auto) 0.4 10 ^3/uL (0.4-5.4); Mean Corpuscular Hemoglobin 35.8 pg (28.0-32.0); Monocytes # (auto) 0.5 10 ^3/uL (0-1.3); Red Cell Distribution Width 15.4 % (11.8-14.3)
[2022-06-16 05:37] LABS: Basophils % (auto) 0.2 % (0.0-2.0); Hematocrit 46.1 % (41.0-53.0); Lymphocytes % (auto) 2.8 % (10.0-50.0); Mean Corpuscular Hgb Conc. 34.1 g/dL (32.0-36.0); Mean Corpuscular Volume 104.9 fL (80.0-100.0); Neutrophils # (auto) 11.9 10 ^3/uL (1.6-8.6); Nucleated Red Blood Cells % 0.1 %; Red Blood Cells 4.39 10^6/uL (4.5-5.90); White Blood Cell 12.8 10^3/uL (4.4-10.8)
[2022-06-16] MEDS: methylPREDNISolone SOD SUCC 40 MG/ML VL IV SCH ×3 (05:43→21:58)
[2022-06-16 05:44] LABS: Albumin 3.6 g/dL (3.4-5.0); Calcium 8.9 mg/dL (8.5-10.1); Potassium 4.9 mmol/L (3.5-5.1)
[2022-06-16 05:47] LABS: Magnesium 2.9 mg/dL (1.6-2.6)
[2022-06-16] MEDS: InsuLIN REG 1unit/0.01ml Soln (100units/ml) SC SCH ×4 (05:54→22:18)
[2022-06-16] MEDS: ACCU-CHEK COMFORT CURVE STRIP VI SCH ×4 (05:56→21:59)
[2022-06-16 05:57] LABS: Bilirubin, Total 0.6 mg/dL (0.2-1.0); Total Protein 7.5 g/dL (6.4-8.2)
[2022-06-16 07:40] VITALS: BP 126/58
[2022-06-16] MEDS: FLUTICASONE SALMETEROL IN SCH (09:01)
[2022-06-16] MEDS: cefTRIAXone 1GM/50ML D5W 50 ML IV SCH (09:01)
[2022-06-16] MEDS: FUROSEMIDE 40 MG/4 ML VIAL IV SCH (09:40)
[2022-06-16] MEDS: LOSARTAN POTASSIUM 25 MG TAB PO SCH (09:41)
[2022-06-16] MEDS: DOCUSATE SOD 100 MG CAP PO SCH (09:41)
[2022-06-16] MEDS: ASPirin 81 mg TAB PO SCH (09:41)
[2022-06-16] MEDS: ENOXAPARIN SOD 100 MG/1 ML SYRINGE SC SCH ×2 (09:42→21:59)
[2022-06-16] MEDS: PARoxetine 20 MG TAB PO SCH (09:42)
[2022-06-16] MEDS: hydroxyUREA 500 MG CAP PO SCH ×2 (09:42→22:00)
[2022-06-16] MEDS: ALBUTEROL SULF 2.5 MG/0.5ML(0.5%) NEB SOLN NEB SCH ×2 (11:15→11:55)
[2022-06-16] MEDS ORDERED: AZITHROMYCIN 500MG/ 250ML 250 ML IV ONE (11:15)
[2022-06-16] MEDS ORDERED: BUDESONIDE (INHALATION) 0.5 MG/2 ML NEB NEB SCH (11:30)
[2022-06-16 11:51] VITALS: BP 140/68
[2022-06-16 17:00] VITALS: BP 114/54
[2022-06-16] MEDS: TAMSULOSIN HYDROCHLORIDE 0.4 MG CAP PO SCH (17:59)
[2022-06-16 20:00] VITALS: BP 140/86
[2022-06-16 22:00] VITALS: BP 140/86
[2022-06-16] MEDS: ATORVASTATIN 20 MG TAB PO SCH (22:00)
[2022-06-17] MEDS: LORazepam 0.5 MG TAB PO PRN ×2 (00:55→18:16)
[2022-06-17 05:00] VITALS: BP 105/66
[2022-06-17] MEDS: ALBUTEROL SULF 2.5 MG/0.5ML(0.5%) NEB SOLN NEB SCH ×3 (06:00→19:15)
[2022-06-17] MEDS: ACCU-CHEK COMFORT CURVE STRIP VI SCH ×4 (06:36→22:10)
[2022-06-17] MEDS: methylPREDNISolone SOD SUCC 40 MG/ML VL IV SCH ×3 (06:36→22:09)
[2022-06-17] MEDS: InsuLIN REG 1unit/0.01ml Soln (100units/ml) SC SCH ×4 (06:38→22:16)
[2022-06-17 07:56] VITALS: BP 104/34
[2022-06-17] MEDS: AZITHROMYCIN 500MG/ 250ML 250 ML IV SCH (09:35)
[2022-06-17] MEDS: cefTRIAXone 1GM/50ML D5W 50 ML IV SCH (09:35)
[2022-06-17] MEDS: ASPirin 81 mg TAB PO SCH (09:35)
[2022-06-17] MEDS: DOCUSATE SOD 100 MG CAP PO SCH (09:35)
[2022-06-17] MEDS: ENOXAPARIN SOD 100 MG/1 ML SYRINGE SC SCH ×2 (09:36→22:09)
[2022-06-17] MEDS: LOSARTAN POTASSIUM 25 MG TAB PO SCH (09:36)
[2022-06-17] MEDS: PARoxetine 20 MG TAB PO SCH (09:36)
[2022-06-17] MEDS: hydroxyUREA 500 MG CAP PO SCH ×2 (09:36→22:09)
[2022-06-17] MEDS: FUROSEMIDE 40 MG/4 ML VIAL IV SCH (09:37)
[2022-06-17] MEDS: BUDESONIDE (INHALATION) 0.5 MG/2 ML NEB NEB SCH ×3 (11:15→21:53)
[2022-06-17 12:04] VITALS: BP 110/72
[2022-06-17 16:26] VITALS: BP 125/68
[2022-06-17] MEDS: TAMSULOSIN HYDROCHLORIDE 0.4 MG CAP PO SCH (18:06)
[2022-06-17] MEDS: IPRATROPIUM BROM 0.5 MG/2.5ML INH SOL NEB PRN (19:17)
[2022-06-17 20:00] VITALS: BP 119/50
[2022-06-17 22:00] VITALS: BP 119/46
[2022-06-17] MEDS: ATORVASTATIN 20 MG TAB PO SCH (22:09)
[2022-06-18] MEDS: ALBUTEROL SULF 2.5 MG/0.5ML(0.5%) NEB SOLN NEB SCH ×3 (00:04→13:01)
[2022-06-18] MEDS: IPRATROPIUM BROM 0.5 MG/2.5ML INH SOL NEB PRN ×2 (00:04→05:53)
[2022-06-18 04:51] VITALS: BP 101/53
[2022-06-18] MEDS: BUDESONIDE (INHALATION) 0.5 MG/2 ML NEB NEB SCH (05:54)
[2022-06-18] MEDS: methylPREDNISolone SOD SUCC 40 MG/ML VL IV SCH ×2 (06:09→14:00)
[2022-06-18] MEDS: ACCU-CHEK COMFORT CURVE STRIP VI SCH ×2 (06:15→11:30)
[2022-06-18] MEDS: InsuLIN REG 1unit/0.01ml Soln (100units/ml) SC SCH ×2 (06:39→12:37)
[2022-06-18 09:00] VITALS: BP 143/57
[2022-06-18] MEDS: AZITHROMYCIN 500MG/ 250ML 250 ML IV SCH (09:23)
[2022-06-18] MEDS: cefTRIAXone 1GM/50ML D5W 50 ML IV SCH (09:23)
[2022-06-18] MEDS: ASPirin 81 mg TAB PO SCH (09:24)
[2022-06-18] MEDS: DOCUSATE SOD 100 MG CAP PO SCH (09:25)
[2022-06-18] MEDS: LOSARTAN POTASSIUM 25 MG TAB PO SCH (09:25)
[2022-06-18] MEDS: PARoxetine 20 MG TAB PO SCH (09:25)
[2022-06-18] MEDS: hydroxyUREA 500 MG CAP PO SCH (09:25)
[2022-06-18] MEDS: ENOXAPARIN SOD 100 MG/1 ML SYRINGE SC SCH (09:26)
[2022-06-18] MEDS: FUROSEMIDE 40 MG/4 ML VIAL IV SCH (09:26)
[2022-06-18] MEDS ORDERED: LEVO500T31 PO (11:06)
[2022-06-18 11:39] VITALS: BP 142/58
[2022-06-18 13:00] VITALS: BP 158/74
[2022-06-18 13:59] VITALS: BP 143/57
[2022-06-18] MEDS: LORazepam 0.5 MG TAB PO PRN (14:54)
== END 2022-06-18 15:20 | disposition hospice, home (50) | DRG 871 ==
LOC: EDBD 08:36 → EDUNIT# 08:36 → ER 08:36 → TELE 13:29 → TELE-WESTW 23:30
PROVIDERS: ADMIT Nurse Practitioner Family; ATTEND Family Medicine
DX: A41.9 Sepsis, unspecified organism (principal); I21.4 Non-ST elevation (NSTEMI) myocardial infarction; I50.33 Acute on chronic diastolic (congestive) heart failure; J96.00 Acute respiratory failure, unspecified whether with hypoxia or hypercapnia; J18.9 Pneumonia, unspecified organism; J44.1 Chronic obstructive pulmonary disease with (acute) exacerbation; J98.11 Atelectasis; E87.20 Acidosis, unspecified; I16.9 Hypertensive crisis, unspecified; Z20.822 Contact with and (suspected) exposure to COVID-19; D75.839 Thrombocytosis, unspecified; E11.65 Type 2 diabetes mellitus with hyperglycemia; I11.0 Hypertensive heart disease with heart failure; E78.5 Hyperlipidemia, unspecified; F32.A Depression, unspecified; N40.0 Benign prostatic hyperplasia without lower urinary tract symptoms; Z79.4 Long term (current) use of insulin; Z79.82 Long term (current) use of aspirin; Z79.84 Long term (current) use of oral hypoglycemic drugs; Z82.3 Family history of stroke; Z82.49 Family history of ischemic heart disease and other diseases of the circulatory system; Z82.5 Family history of asthma and other chronic lower respiratory diseases; Z83.3 Family history of diabetes mellitus; Z86.16 Personal history of COVID-19
CPT/HCPCS: 36415; 36600; 71045; 80053; 80061; 81001; 82805; 82962; 83036; 83605; 83735; 83880; 84484; 85007; 85025; 85027; 85379; 85610; 87040; 87086; 87426; 87804; 93005; 93306; 94640; 96365; 96375; 99291; G0378; J0696; J1815